=== PATIENT | female | born 1960 | race Caucasian/White ===

== ENCOUNTER 2019-04-23 09:56 | Inpatient (IN) ==
[2019-04-23] MEDS ORDERED: Sucralfate 1 GM TABLET PO PRN (12:00)
[2019-04-23] MEDS ORDERED: Magic Mouthwash 10 ML UD Cup PO PRN (12:00)
[2019-04-23] MEDS ORDERED: Nitroglycerin 0.4 MG TAB.SUBL SL PRN (12:00)
[2019-04-23] MEDS: *HR* HYDROcodone/Acet 10/325 mg TABLET PO PRN (14:02)
[2019-04-23] MEDS: GuaiFENesin/Codeine Oral Soln 5 ML UDC PO PRN (14:03)
[2019-04-23] MEDS: Ondansetron ODT 4 MG TAB.RAPDIS SL PRN (14:04)
[2019-04-23] MEDS ORDERED: D5% in Water 1,000 ML IVC PRN (15:21)
[2019-04-23] MEDS ORDERED: *HR* Dextrose 50 % in Water (Syg) 50 ML SYRINGE IVP PRN (15:21)
[2019-04-23] MEDS ORDERED: Dextrose Gel 15 GM/37.5 ML TUBE PO PRN ×2 (15:21)
--- NOTE | 2019-04-23 15:56 | Internal Med History&Physical ---
Date of Encounter: 04/23/19 Time of Encounter: 15:15 Assessment and Plan (1) Weakness Current visit: No Status: Acute PT and OT evaluations will be done with ongoing intervention. (2) Hyperlipidemia Current visit: Yes Status: Acute Lipid profile done 04/12/2019 reviewed. Continue Zetia Qualifiers: Hyperlipidemia type: unspecified Qualified Code(s): E78.5 - Hyperlipidemia, unspecified (3) Low vitamin D level Current visit: Yes Status: Acute Vitamin D level was 17 on 04/12/2019. Supplemental vitamin D has been ordered. (4) Hypertension Current visit: Yes Status: Chronic Continue Lopressor and Aldactone. Qualifiers: Hypertension type: essential hypertension Qualified Code(s): I10 - Essential (primary) hypertension (5) Anxiety and depression Current visit: Yes Status: Chronic Continue Wellbutrin, Ativan, and Zoloft. (6) Diabetes Current visit: No Status: Chronic Continue Levemir and Accu-Cheks with SSI. Qualifiers: Diabetes mellitus type: type 2 Diabetes mellitus complication status: with other specified complication Qualified Code(s): E11.69 - Type 2 diabetes mellitus with other specified complication; Z79.4 - skilled nursing (current) use of insulin (7) Lung cancer Current visit: No Status: Acute As per oncologist. Qualifiers: Laterality: unspecified laterality Lung location: unspecified part of lung Qualified Code(s): C34.90 - Malignant neoplasm of unspecified part of unspecified bronchus or lung (8) Neuropathy Current visit: Yes Status: Chronic [place] secondary to diabetes. Continue Lyrica. (9) COPD (chronic obstructive pulmonary disease) Current visit: Yes Status: Chronic Continue Symbicort, DuoNeb, and prn albuterol. Qualifiers: COPD type: unspecified COPD Qualified Code(s): J44.9 - Chronic obstructive pulmonary disease, unspecified Internal Medicine - H&P: HPI Chief complaint: Weakness Admitted From: Hospital to Hospital Transfer Plans for Post Hospital Care: Home History of present illness: Ms. North is a 58 year old female who was transferred to [facility] swing bed following [facility] hospitalizations April 11 and April 17. The initial hospitalization was due to syncopal episode with fall and weakness. She declined ECF placement recommended at discharge. She had a fall at home from weakness leading to the second admission. Workup included brain MRIs and lumbar puncture. Definitive etiology was not found but hypoglycemia was suspected as etiology of the fall. It was felt she would benefit from rehabilitation therapy in swing bed prior to returning to independent living. Past Med Surg Social Fam HX - Past Medical History Medical history: arthritis, cancer, COPD, diabetes, fibromyalgia, hyperlipidemia, hypertension Additional medical history: lung cancer-last tx March 19 chemo and radiation Psychiatric history: anxiety, depression, panic disorder - Past Surgical History Surgical History: cholecystectomy, hysterectomy Additional surgical history: TONSILS,vocal polyps, - Social History Smoking Status: Current every day smoker Smokeless Tobacco Status: No Alcohol use: none Drug use: none - Family History Mother Living Status: Father Living Status: Internal Medicine - H&P: Meds Budesonide/Formoterol 160/4.5 [Symbicort 160/4.5] 2 puff IH BIDR 06/23/18 [History] Ezetimibe [Zetia] 10 mg PO DAILY 06/23/18 [History] Ipratropium/Albuterol Neb [Duoneb] 3 ml IH Q6HR 06/23/18 [History] LORazepam [Ativan] 1 mg PO TID PRN 06/23/18 [History] Nitroglycerin [Nitrostat] 0.4 mg SL AD PRN 06/23/18 [History] Roflumilast [Daliresp] 500 mcg PO DAILY 06/23/18 [History] Sertraline [Zoloft] 200 mg PO DAILY 09/23/18 [History] Magic Mouthwash [Magic Mouthwash BLM] 10 ml PO Q2H PRN #960 ml 10/13/18 [Rx] Albuterol Sulfate [Proair Hfa] 2 puff IH Q6H PRN 10/26/18 [History] Sucralfate [Carafate] 1 gm PO QIDAC PRN #120 tablet 11/11/18 [Rx] Metoclopramide [Reglan] 10 mg PO QIDAC 30 Days #1200 ml 11/23/18 [Rx] Loperamide [Imodium] 2 mg PO Q4HR PRN #30 capsule 12/21/18 [Rx] Ondansetron [Zofran ODT] 8 mg SL Q8H PRN #30 tab 02/04/19 [Rx] GuaiFENesin/Codeine [ROBITUSSIN w/CODEINE] 10 - 20 ml PO Q6HR PRN 8 Days #480 liquid 02/15/19 [Rx] Bupropion HCl [Wellbutrin Xl] 300 mg PO DAILY 04/12/19 [History] HYDROcodone/Acet 10/325 mg [[place] 10-325 mg] 1 - 2 tab PO Q8HR PRN 04/12/19 [History] Metoprolol [Lopressor] 25 mg PO BID 04/12/19 [History] Spironolactone [Aldactone] 25 mg PO DAILY 04/12/19 [History] Subcutaneous Insulin Pump [T:Slim] 1 each MC AD 04/12/19 [History] Cholecalciferol (D-3) [Vitamin D] 2,000 unit PO DAILY #30 tablet 04/13/19 [Rx] Vitamin B Complex/Vit C/Vit E [Stresstab] 1 each PO DAILY #30 tablet 04/13/19 [Rx] Nicotine Patch [Nicoderm] 21 mg TD DAILY patch.td24 04/23/19 [Rx] Pregabalin [Lyrica] 50 mg PO DAILY 5 Days #5 capsule 04/23/19 [Rx] Allergy/AdvReac Type Severity Reaction Status Date / Time eszopiclone [From Lunesta] Allergy Anxiety Verified 12/21/18 09:27 gabapentin [From Neurontin] Allergy Vomiting Verified 12/21/18 09:27 meperidine [From Demerol] Allergy Itching Verified 12/21/18 09:27 metformin Allergy Diarrhea Verified 12/21/18 09:27 All Systems PM: A 10-system review of systems was performed and is negative for pertinent findi ngs except as documented above in the HPI. Review of systems: Gen.: She states her weight has decreased approximately 60 pounds in the past 6 months, unintentionally Respiratory: She has history of hypertension but denies MS heart failure DVT or pulmonary embolus. Echocardiogram 04/13/2019 showed LVEF of 55%. No significant valvular dysfunction was seen. The interventricular septum and posterior wall thickness measurements were 0.72 and 0.94 cm respectively. E/A ratio was 0.9. Heart cath June 2018 showed 50% stenosis in the mid RCA, 25% stenosis in proximal RCA, 25% stenosis in proximal circumflex, 30% stenosis in mid LAD, 25% stenosis in proximal LAD, and LMCA angiographically free of disease. Respiratory: She has smoked since age 11 up to one pack per day. She reports PFTs done almost 40 years ago showed COPD. She does not use supplemental home oxygen. She has MEHDI and uses CPAP at bedtime GI: She has had cholecystectomy. She has been diagnosed with NAFLD. She denies disorders of her exocrine pancreas. : She has had multiple kidney stones with most recent stone approximately one month ago. She denies other kidney or bladder disorders. Neurologic: She has not had large distribution strokes or seizures. She had prophylactic whole brain radiation earlier this year for diagnosis of small cell lung cancer. Endocrine: She was diagnosed with DM 2 approximately 2005. Hemoglobin A1c was 9.8% on 04/12/2019. She has history of hyperlipidemia. She denies thyroid disease. Hematology/oncology: She was diagnosed with small cell lung cancer of the right lung September 2018. She had chemotherapy ending December 2018. She had XRT to brain and lung. There is no known distal metastasis. She denies other internal malignancies or blood disorders. Psychiatric: She has anxiety and depression. She denies other mental health diagnoses. [place] skeletal: She has DJD and fibromyalgia. She has not been diagnosed with gout or other bone joint or muscle disorders. - Constitutional Vitals: Temp Pulse Resp BP Pulse Ox 98.0 F 79 18 141/83 95 04/23/19 13:18 04/23/19 13:28 04/23/19 13:18 04/23/19 13:18 04/23/19 13:28 Exam: Gen.: She is a well-developed overweight female lying in bed who appears in no acute distress HEENT: Head is atraumatic and normocephalic. She has alopecia totalis. Eyes: EOMI. There is no scleral icterus. Mouth: Mucosa is moist. Neck: Supple and nontender. There is no thyromegaly or adenopathy noted. Heart: Regular without murmurs gallops or ectopics Lungs: No wheezes or crackles are heard. Abdomen: She has a large abdomen. There is mild tenderness to light palpation. No masses or guarding are noted. Extremities: There is no cyanosis edema or clubbing noted. Dorsalis pedis and posterior tibial pulses are trace to 1+ palpable bilaterally. Neurologic: Mental status: She is talkative and a good historian. Cranial nerv es: Smile is symmetric. Forehead wrinkles bilaterally. Tongue protrudes midline. EOMI. Motor: There is no pronator drift. Cerebellar: Finger to nose is intact bilaterally. Skin: Warm and dry
[2019-04-23] MEDS: Metoclopramide 10 MG/10 ML UD.LIQ PO SCH ×2 (17:07→21:33)
[2019-04-23] MEDS: Insulin LISPRO 300 UNITS/3 ML VIAL SQ SCH ×2 (17:08→21:35)
[2019-04-23] MEDS: Ipratropium/Albuterol Neb 3 ML IH SCH ×2 (18:20→23:16)
[2019-04-23] MEDS: Insulin DETEMIR 100 UNIT/ML X5UNITS SQ SCH (21:35)
[2019-04-23] MEDS: Budesonide/Formoterol 160/4.5 1 PUFF INH IH SCH (23:16)
[2019-04-24] MEDS: Ipratropium/Albuterol Neb 3 ML IH SCH ×4 (04:00→21:56)
[2019-04-24] MEDS: Nicotine 21 MG PATCH.TD24 TD SCH (08:05)
[2019-04-24] MEDS: Insulin DETEMIR 100 UNIT/ML X5UNITS SQ SCH ×2 (08:07→21:39)
[2019-04-24] MEDS: Insulin LISPRO 300 UNITS/3 ML VIAL SQ SCH ×4 (08:07→21:40)
[2019-04-24] MEDS: Metoclopramide 10 MG/10 ML UD.LIQ PO SCH ×4 (08:09→21:39)
[2019-04-24] MEDS: BuPROPion XL (24 HR) 150 MG TABLET PO SCH (08:10)
[2019-04-24] MEDS: Cholecalciferol (D-3) 1,000 UNIT (25MCG) TABLET PO SCH (08:11)
[2019-04-24] MEDS: Vitamin B Complex/Vit C/Vit E 1 EACH TABLET PO SCH (08:11)
[2019-04-24] MEDS: Spironolactone 25 MG TABLET PO SCH (08:11)
[2019-04-24] MEDS: Pregabalin 50 MG CAPSULE PO SCH (08:11)
[2019-04-24] MEDS: DALIRESP 500MCG PO SCH (08:11)
[2019-04-24] MEDS: *HR* HYDROcodone/Acet 10/325 mg TABLET PO PRN ×2 (08:11→17:53)
[2019-04-24] MEDS: EZETIMIBE 10MG PO SCH (08:12)
[2019-04-24] MEDS: Budesonide/Formoterol 160/4.5 1 PUFF INH IH SCH ×2 (09:17→21:57)
[2019-04-24] MEDS: Ondansetron ODT 4 MG TAB.RAPDIS SL PRN ×2 (11:44→17:53)
--- NOTE | 2019-04-24 17:51 | Internal Med Progress Note ---
Date of Encounter: 04/24/19 Time of Encounter: 17:40 - Assessment and plan (1) Weakness Current Visit: No Status: Acute Assessment and plan: April 24. Continue PT/OT intervention. (2) Hyperlipidemia Current Visit: Yes Status: Acute Assessment and plan: April 24. Continue Zetia Qualifiers: Hyperlipidemia type: unspecified Qualified Code(s): E78.5 - Hyperlipidemia, unspecified (3) Low vitamin D level Current Visit: Yes Status: Acute Assessment and plan: April 24. Continue vitamin D supplement (4) Hypertension Current Visit: Yes Status: Chronic Assessment and plan: April 24. Continue Lopressor and Aldactone. Qualifiers: Hypertension type: essential hypertension Qualified Code(s): I10 - Essential (primary) hypertension (5) Anxiety and depression Current Visit: Yes Status: Chronic Assessment and plan: April 24. Continue Wellbutrin, Ativan, and Zoloft (6) Diabetes Current Visit: No Status: Chronic Assessment and plan: April 24. 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 As per oncologist Qualifiers: Laterality: unspecified laterality Lung location: unspecified part of lung Qualified Code(s): C34.90 - Malignant neoplasm of unspecified part of unspecified bronchus or lung (8) Neuropathy Current Visit: Yes Status: Chronic Assessment and plan: April 24. Probable DPN. Continue Lyrica. (9) COPD (chronic obstructive pulmonary disease) Current Visit: Yes Status: Chronic Assessment and plan: April 24. Continue Symbicort, DuoNeb, and prn albuterol. Qualifiers: COPD type: unspecified COPD Qualified Code(s): J44.9 - Chronic obstructive pulmonary disease, unspecified - Subjective Interval history: April 24. She has no new complaints except she has a "slight ringing" in her head and feels "disconnected". - Constitutional Vitals: Temp Pulse Resp BP Pulse Ox 96.8 F L 67 16 110/78 93 04/24/19 07:02 04/24/19 07:02 04/24/19 09:18 04/24/19 07:02 04/24/19 09:18 Exam: She is resting comfortably in bed and appears in no acute distress. Her affect is overall cheerful. She is appropriate in conversation. I reviewed her medications and lab results. Consult Discharge Plan - Plan Referrals: Reuben Melara DO [Primary Care Provider] - 1 week
[2019-04-24] MEDS: *HR* LORazepam 1 MG TABLET PO PRN (17:53)
[2019-04-24] MEDS: GuaiFENesin/Codeine Oral Soln 5 ML UDC PO PRN (17:55)
[2019-04-25] MEDS: Ipratropium/Albuterol Neb 3 ML IH SCH ×4 (04:42→22:07)
[2019-04-25] MEDS: Insulin LISPRO 300 UNITS/3 ML VIAL SQ SCH ×4 (08:48→21:37)
[2019-04-25] MEDS: Insulin DETEMIR 100 UNIT/ML X5UNITS SQ SCH ×2 (08:48→21:37)
[2019-04-25] MEDS: Nicotine 21 MG PATCH.TD24 TD SCH (08:52)
[2019-04-25] MEDS: Metoclopramide 10 MG/10 ML UD.LIQ PO SCH ×4 (08:55→21:37)
[2019-04-25] MEDS: Vitamin B Complex/Vit C/Vit E 1 EACH TABLET PO SCH (08:55)
[2019-04-25] MEDS: BuPROPion XL (24 HR) 150 MG TABLET PO SCH (08:55)
[2019-04-25] MEDS: Ondansetron ODT 4 MG TAB.RAPDIS SL PRN (08:56)
[2019-04-25] MEDS: Cholecalciferol (D-3) 1,000 UNIT (25MCG) TABLET PO SCH (08:56)
[2019-04-25] MEDS: DALIRESP 500MCG PO SCH (08:56)
[2019-04-25] MEDS: Spironolactone 25 MG TABLET PO SCH (08:56)
[2019-04-25] MEDS: Pregabalin 50 MG CAPSULE PO SCH (08:56)
[2019-04-25] MEDS: *HR* HYDROcodone/Acet 10/325 mg TABLET PO PRN ×2 (08:57→21:36)
[2019-04-25] MEDS: EZETIMIBE 10MG PO SCH (08:57)
[2019-04-25] MEDS: Budesonide/Formoterol 160/4.5 1 PUFF INH IH SCH ×2 (10:12→22:07)
[2019-04-25] MEDS: *HR* LORazepam 1 MG TABLET PO PRN (21:35)
[2019-04-26] MEDS: Ipratropium/Albuterol Neb 3 ML IH SCH ×4 (04:17→20:55)
[2019-04-26] MEDS: Metoclopramide 10 MG/10 ML UD.LIQ PO SCH ×4 (08:56→20:43)
[2019-04-26] MEDS: Insulin DETEMIR 100 UNIT/ML X5UNITS SQ SCH ×2 (08:57→20:47)
[2019-04-26] MEDS: Insulin LISPRO 300 UNITS/3 ML VIAL SQ SCH ×4 (08:57→20:44)
[2019-04-26] MEDS: Nicotine 21 MG PATCH.TD24 TD SCH (08:59)
[2019-04-26] MEDS: Vitamin B Complex/Vit C/Vit E 1 EACH TABLET PO SCH (09:06)
[2019-04-26] MEDS: BuPROPion XL (24 HR) 150 MG TABLET PO SCH (09:06)
[2019-04-26] MEDS: Ondansetron ODT 4 MG TAB.RAPDIS SL PRN ×2 (09:06→21:00)
[2019-04-26] MEDS: Pregabalin 50 MG CAPSULE PO SCH (09:06)
[2019-04-26] MEDS: Spironolactone 25 MG TABLET PO SCH (09:06)
[2019-04-26] MEDS: Cholecalciferol (D-3) 1,000 UNIT (25MCG) TABLET PO SCH (09:07)
[2019-04-26] MEDS: *HR* LORazepam 1 MG TABLET PO PRN ×2 (09:09→16:46)
[2019-04-26] MEDS: *HR* HYDROcodone/Acet 10/325 mg TABLET PO PRN (09:09)
[2019-04-26] MEDS: EZETIMIBE 10MG PO SCH (09:16)
[2019-04-26] MEDS: DALIRESP 500MCG PO SCH (09:16)
[2019-04-26] MEDS: Budesonide/Formoterol 160/4.5 1 PUFF INH IH SCH ×2 (10:12→20:55)
[2019-04-26] MEDS ORDERED: Insulin LISPRO 300 UNITS/3 ML VIAL SQ ONE (13:19)
--- NOTE | 2019-04-26 15:16 | Internal Med Progress Note ---
Date of Encounter: 04/26/19 Time of Encounter: 15:08 - Assessment and plan (1) Weakness Current Visit: No Status: Acute Assessment and plan: April 24. Continue PT/OT intervention. (2) Hyperlipidemia Current Visit: Yes Status: Acute Assessment and plan: April 24. Continue Zetia Qualifiers: Hyperlipidemia type: unspecified Qualified Code(s): E78.5 - Hyperlipidemia, unspecified (3) Low vitamin D level Current Visit: Yes Status: Acute Assessment and plan: April 24. Vitamin D level was 17 on 04/12/2019. Continue vitamin D supplement (4) Hypertension Current Visit: Yes Status: Chronic Assessment and plan: April 24. Continue Lopressor and Aldactone. Qualifiers: Hypertension type: essential hypertension Qualified Code(s): I10 - Essential (primary) hypertension (5) Anxiety and depression Current Visit: Yes Status: Chronic Assessment and plan: April 24. Continue Wellbutrin, Ativan, and Zoloft (6) Diabetes Current Visit: No Status: Chronic Assessment and plan: April 24. Continue Levemir and Accu-Cheks with SSI April 26. Blood sugars are above desirable level. Increase Levemir to 20 units twice a day. Continue Accu-Cheks with SSI. 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 As per oncologist Qualifiers: Laterality: unspecified laterality Lung location: unspecified part of lung Qualified Code(s): C34.90 - Malignant neoplasm of unspecified part of unspecified bronchus or lung (8) Neuropathy Current Visit: Yes Status: Chronic Assessment and plan: April 24. Probable DPN. Continue Lyrica. (9) COPD (chronic obstructive pulmonary disease) Current Visit: Yes Status: Chronic Assessment and plan: April 24. Continue Symbicort, DuoNeb, and prn albuterol. Qualifiers: COPD type: unspecified COPD Qualified Code(s): J44.9 - Chronic obstructive pulmonary disease, unspecified - Subjective Interval history: April 24. She has no new complaints except she has a "slight ringing" in her head and feels "disconnected". April 26. She has no new complaints. - Constitutional Vitals: Temp Pulse Resp BP Pulse Ox 98.1 F 72 14 149/81 93 04/26/19 06:48 04/26/19 06:48 04/26/19 10:12 04/26/19 06:48 04/26/19 10:12 Exam: She is resting comfortably in bed. She is wearing BiPAP at present. Heart is regular without murmurs gallops or ectopics. Lungs are clear anteriorly. Extremities show no pitting edema. I reviewed her medications and lab results. Consult Discharge Plan - Plan Referrals: Reuben Melara DO [Primary Care Provider] - 1 week
[2019-04-26] MEDS: GuaiFENesin/Codeine Oral Soln 5 ML UDC PO PRN (18:45)
[2019-04-27] MEDS: Ipratropium/Albuterol Neb 3 ML IH SCH ×4 (05:14→21:42)
[2019-04-27] MEDS: Cholecalciferol (D-3) 1,000 UNIT (25MCG) TABLET PO SCH (08:40)
[2019-04-27] MEDS: Metoclopramide 10 MG/10 ML UD.LIQ PO SCH ×4 (08:40→20:14)
[2019-04-27] MEDS: Spironolactone 25 MG TABLET PO SCH (08:40)
[2019-04-27] MEDS: Pregabalin 50 MG CAPSULE PO SCH (08:40)
[2019-04-27] MEDS: Vitamin B Complex/Vit C/Vit E 1 EACH TABLET PO SCH (08:40)
[2019-04-27] MEDS: BuPROPion XL (24 HR) 150 MG TABLET PO SCH (08:41)
[2019-04-27] MEDS: Insulin LISPRO 300 UNITS/3 ML VIAL SQ SCH ×4 (08:42→20:15)
[2019-04-27] MEDS: Insulin DETEMIR 100 UNIT/ML X5UNITS SQ SCH ×2 (08:42→20:14)
[2019-04-27] MEDS: Nicotine 21 MG PATCH.TD24 TD SCH (09:06)
[2019-04-27] MEDS: Ondansetron ODT 4 MG TAB.RAPDIS SL PRN ×3 (09:06→20:14)
[2019-04-27] MEDS: *HR* LORazepam 1 MG TABLET PO PRN ×2 (09:06→17:12)
[2019-04-27] MEDS: EZETIMIBE 10MG PO SCH (09:13)
[2019-04-27] MEDS: DALIRESP 500MCG PO SCH (09:13)
[2019-04-27] MEDS: Budesonide/Formoterol 160/4.5 1 PUFF INH IH SCH ×2 (11:06→21:42)
[2019-04-27] MEDS ORDERED: Insulin LISPRO 300 UNITS/3 ML VIAL SQ ONE (11:37)
[2019-04-27] MEDS: GuaiFENesin/Codeine Oral Soln 5 ML UDC PO PRN (17:11)
[2019-04-28] MEDS: Ipratropium/Albuterol Neb 3 ML IH SCH ×4 (03:19→21:45)
[2019-04-28] MEDS: Vitamin B Complex/Vit C/Vit E 1 EACH TABLET PO SCH (08:23)
[2019-04-28] MEDS: Metoclopramide 10 MG/10 ML UD.LIQ PO SCH ×4 (08:23→22:14)
[2019-04-28] MEDS: BuPROPion XL (24 HR) 150 MG TABLET PO SCH (08:23)
[2019-04-28] MEDS: Cholecalciferol (D-3) 1,000 UNIT (25MCG) TABLET PO SCH (08:24)
[2019-04-28] MEDS: Pregabalin 50 MG CAPSULE PO SCH (08:24)
[2019-04-28] MEDS: Spironolactone 25 MG TABLET PO SCH (08:24)
[2019-04-28] MEDS: EZETIMIBE 10MG PO SCH (08:25)
[2019-04-28] MEDS: DALIRESP 500MCG PO SCH (08:25)
[2019-04-28] MEDS: *HR* LORazepam 1 MG TABLET PO PRN ×3 (08:35→22:14)
[2019-04-28] MEDS: Nicotine 21 MG PATCH.TD24 TD SCH (08:35)
[2019-04-28] MEDS: Insulin LISPRO 300 UNITS/3 ML VIAL SQ SCH ×4 (08:36→22:14)
[2019-04-28] MEDS: Insulin DETEMIR 100 UNIT/ML X5UNITS SQ SCH ×2 (08:36→22:14)
[2019-04-28] MEDS: *HR* HYDROcodone/Acet 10/325 mg TABLET PO PRN ×2 (08:42→22:13)
[2019-04-28] MEDS: Budesonide/Formoterol 160/4.5 1 PUFF INH IH SCH ×2 (10:07→22:35)
[2019-04-28] MEDS: GuaiFENesin/Codeine Oral Soln 5 ML UDC PO PRN (22:26)
[2019-04-29] MEDS: Ipratropium/Albuterol Neb 3 ML IH SCH ×4 (04:52→21:58)
[2019-04-29] MEDS: EZETIMIBE 10MG PO SCH (08:25)
[2019-04-29] MEDS: DALIRESP 500MCG PO SCH (08:25)
[2019-04-29] MEDS: Vitamin B Complex/Vit C/Vit E 1 EACH TABLET PO SCH (08:46)
[2019-04-29] MEDS: Metoclopramide 10 MG/10 ML UD.LIQ PO SCH ×4 (08:46→21:08)
[2019-04-29] MEDS: BuPROPion XL (24 HR) 150 MG TABLET PO SCH (08:46)
[2019-04-29] MEDS: Pregabalin 50 MG CAPSULE PO SCH (08:47)
[2019-04-29] MEDS: Spironolactone 25 MG TABLET PO SCH (08:47)
[2019-04-29] MEDS: Insulin DETEMIR 100 UNIT/ML X5UNITS SQ SCH ×2 (08:47→20:57)
[2019-04-29] MEDS: Nicotine 21 MG PATCH.TD24 TD SCH (08:47)
[2019-04-29] MEDS: Cholecalciferol (D-3) 1,000 UNIT (25MCG) TABLET PO SCH (08:47)
[2019-04-29] MEDS: *HR* LORazepam 1 MG TABLET PO PRN ×3 (08:47→20:57)
[2019-04-29] MEDS: Insulin LISPRO 300 UNITS/3 ML VIAL SQ SCH ×4 (08:48→20:59)
[2019-04-29] MEDS: GuaiFENesin/Codeine Oral Soln 5 ML UDC PO PRN ×2 (08:50→20:58)
[2019-04-29] MEDS: Budesonide/Formoterol 160/4.5 1 PUFF INH IH SCH ×2 (09:08→21:59)
[2019-04-29] MEDS: *HR* HYDROcodone/Acet 10/325 mg TABLET PO PRN ×2 (09:23→17:40)
[2019-04-29] MEDS ORDERED: Insulin LISPRO 300 UNITS/3 ML VIAL SQ ONE ×2 (11:56→17:17)
--- NOTE | 2019-04-29 14:50 | Internal Med Progress Note ---
Date of Encounter: 04/29/19 Time of Encounter: 14:42 - Assessment and plan (1) Weakness Current Visit: No Status: Acute Assessment and plan: April 24. Continue PT/OT intervention. (2) Hyperlipidemia Current Visit: Yes Status: Acute Assessment and plan: April 24. Continue Zetia Qualifiers: Hyperlipidemia type: unspecified Qualified Code(s): E78.5 - Hyperlipidemia, unspecified (3) Low vitamin D level Current Visit: Yes Status: Acute Assessment and plan: April 24. Vitamin D level was 17 on 04/12/2019. Continue vitamin D supplement (4) Hypertension Current Visit: Yes Status: Chronic Assessment and plan: April 24. Continue Lopressor and Aldactone. Qualifiers: Hypertension type: essential hypertension Qualified Code(s): I10 - Essential (primary) hypertension (5) Anxiety and depression Current Visit: Yes Status: Chronic Assessment and plan: April 24. Continue Wellbutrin, Ativan, and Zoloft (6) Diabetes Current Visit: No Status: Chronic Assessment and plan: April 24. Continue Levemir and Accu-Cheks with SSI April 26. Blood sugars are above desirable level. Increase Levemir to 20 units twice a day. Continue Accu-Cheks with SSI. April 29. Blood sugars have remained elevated. Levemir dose is now 70 units twice daily. Continue Accu-Cheks with SSI. 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 As per oncologist Qualifiers: Laterality: unspecified laterality Lung location: unspecified part of lung Qualified Code(s): C34.90 - Malignant neoplasm of unspecified part of unspecified bronchus or lung (8) Neuropathy Current Visit: Yes Status: Chronic Assessment and plan: April 24. Probable DPN. Continue Lyrica. (9) COPD (chronic obstructive pulmonary disease) Current Visit: Yes Status: Chronic Assessment and plan: April 24. Continue Symbicort, DuoNeb, and prn albuterol. Qualifiers: COPD type: unspecified COPD Qualified Code(s): J44.9 - Chronic obstructive pulmonary disease, unspecified - Subjective Interval history: April 24. She has no new complaints except she has a "slight ringing" in her head and feels "disconnected". April 26. She has no new complaints. April 29. She has no new complaints except mild discomfort in her legs and lower back. - Constitutional Vitals: Temp Pulse Resp BP Pulse Ox 97.4 F L 61 18 134/62 92 04/29/19 07:04/29/19 07:04/29/19 09:09 04/29/19 07:04/29/19 09:09 Exam: She is resting comfortably in bed wearing nasal BiPAP. Her affect is bright and cheerful. Extremities show no pitting edema. I reviewed her medications and lab results. Consult Discharge Plan - Plan Referrals: Reuben Melara DO [Primary Care Provider] - 1 week
[2019-04-30] MEDS: Ipratropium/Albuterol Neb 3 ML IH SCH ×4 (04:41→22:28)
[2019-04-30] MEDS: Budesonide/Formoterol 160/4.5 1 PUFF INH IH SCH ×2 (09:07→22:28)
[2019-04-30] MEDS: *HR* LORazepam 1 MG TABLET PO PRN ×2 (09:19→21:43)
[2019-04-30] MEDS: Insulin DETEMIR 100 UNIT/ML X5UNITS SQ SCH (09:19)
[2019-04-30] MEDS: BuPROPion XL (24 HR) 150 MG TABLET PO SCH (09:19)
[2019-04-30] MEDS: Insulin LISPRO 300 UNITS/3 ML VIAL SQ SCH ×4 (09:19→21:44)
[2019-04-30] MEDS: Metoclopramide 10 MG/10 ML UD.LIQ PO SCH ×4 (09:19→21:43)
[2019-04-30] MEDS: Nicotine 21 MG PATCH.TD24 TD SCH (09:20)
[2019-04-30] MEDS: Vitamin B Complex/Vit C/Vit E 1 EACH TABLET PO SCH (09:20)
[2019-04-30] MEDS: Pregabalin 50 MG CAPSULE PO SCH (09:20)
[2019-04-30] MEDS: Cholecalciferol (D-3) 1,000 UNIT (25MCG) TABLET PO SCH (09:20)
[2019-04-30] MEDS: DALIRESP 500MCG PO SCH (09:20)
[2019-04-30] MEDS: Spironolactone 25 MG TABLET PO SCH (09:20)
[2019-04-30] MEDS: EZETIMIBE 10MG PO SCH (09:20)
[2019-04-30] MEDS: *HR* HYDROcodone/Acet 10/325 mg TABLET PO PRN (09:25)
[2019-04-30] MEDS ORDERED: Insulin LISPRO 300 UNITS/3 ML VIAL SQ ONE (12:56)
[2019-04-30] MEDS ORDERED: Insulin DETEMIR 100 UNIT/ML per UNIT SQ ONE (21:00)
[2019-05-01] MEDS: Ipratropium/Albuterol Neb 3 ML IH SCH ×4 (04:32→23:13)
[2019-05-01] MEDS: Nicotine 21 MG PATCH.TD24 TD SCH (07:47)
[2019-05-01] MEDS: Insulin DETEMIR 100 UNIT/ML X5UNITS SQ SCH ×2 (07:48→21:43)
[2019-05-01] MEDS: Insulin LISPRO 300 UNITS/3 ML VIAL SQ SCH ×4 (07:49→21:43)
[2019-05-01] MEDS: Metoclopramide 10 MG/10 ML UD.LIQ PO SCH ×4 (07:49→21:36)
[2019-05-01] MEDS: EZETIMIBE 10MG PO SCH (07:50)
[2019-05-01] MEDS: *HR* LORazepam 1 MG TABLET PO PRN ×2 (07:50→21:36)
[2019-05-01] MEDS: BuPROPion XL (24 HR) 150 MG TABLET PO SCH (07:50)
[2019-05-01] MEDS: *HR* HYDROcodone/Acet 10/325 mg TABLET PO PRN ×2 (07:50→21:36)
[2019-05-01] MEDS: Spironolactone 25 MG TABLET PO SCH (07:50)
[2019-05-01] MEDS: Vitamin B Complex/Vit C/Vit E 1 EACH TABLET PO SCH (07:50)
[2019-05-01] MEDS: Cholecalciferol (D-3) 1,000 UNIT (25MCG) TABLET PO SCH (07:50)
[2019-05-01] MEDS: Pregabalin 50 MG CAPSULE PO SCH (07:50)
[2019-05-01] MEDS: DALIRESP 500MCG PO SCH (07:50)
[2019-05-01] MEDS: Budesonide/Formoterol 160/4.5 1 PUFF INH IH SCH ×2 (09:27→23:13)
[2019-05-02] MEDS: Ipratropium/Albuterol Neb 3 ML IH SCH ×4 (04:31→22:37)
[2019-05-02] MEDS: BuPROPion XL (24 HR) 150 MG TABLET PO SCH (09:00)
[2019-05-02] MEDS: Pregabalin 50 MG CAPSULE PO SCH (09:00)
[2019-05-02] MEDS: Insulin DETEMIR 100 UNIT/ML X5UNITS SQ SCH ×2 (09:00→20:54)
[2019-05-02] MEDS: *HR* LORazepam 1 MG TABLET PO PRN ×2 (09:00→20:53)
[2019-05-02] MEDS: Cholecalciferol (D-3) 1,000 UNIT (25MCG) TABLET PO SCH (09:00)
[2019-05-02] MEDS: Vitamin B Complex/Vit C/Vit E 1 EACH TABLET PO SCH (09:00)
[2019-05-02] MEDS: Spironolactone 25 MG TABLET PO SCH (09:00)
[2019-05-02] MEDS: Metoclopramide 10 MG/10 ML UD.LIQ PO SCH ×4 (09:00→20:53)
[2019-05-02] MEDS: Nicotine 21 MG PATCH.TD24 TD SCH (09:07)
[2019-05-02] MEDS: Insulin LISPRO 300 UNITS/3 ML VIAL SQ SCH ×4 (09:07→20:54)
[2019-05-02] MEDS: Budesonide/Formoterol 160/4.5 1 PUFF INH IH SCH ×2 (09:14→22:38)
[2019-05-02] MEDS: EZETIMIBE 10MG PO SCH (09:50)
[2019-05-02] MEDS: DALIRESP 500MCG PO SCH (09:50)
--- NOTE | 2019-05-02 12:18 | Internal Med Progress Note ---
Date of Encounter: 05/02/19 Time of Encounter: 12:10 - Assessment and plan (1) Weakness Current Visit: No Status: Acute Assessment and plan: April 24. Continue PT/OT intervention. (2) Hyperlipidemia Current Visit: Yes Status: Acute Assessment and plan: April 24. Continue Zetia Qualifiers: Hyperlipidemia type: unspecified Qualified Code(s): E78.5 - Hyperlipidemia, unspecified (3) Low vitamin D level Current Visit: Yes Status: Acute Assessment and plan: April 24. Vitamin D level was 17 on 04/12/2019. Continue vitamin D supplement (4) Hypertension Current Visit: Yes Status: Chronic Assessment and plan: April 24. Continue Lopressor and Aldactone. Qualifiers: Hypertension type: essential hypertension Qualified Code(s): I10 - Essential (primary) hypertension (5) Anxiety and depression Current Visit: Yes Status: Chronic Assessment and plan: April 24. Continue Wellbutrin, Ativan, and Zoloft (6) Diabetes Current Visit: No Status: Chronic Assessment and plan: April 24. Continue Levemir and Accu-Cheks with SSI April 26. Blood sugars are above desirable level. Increase Levemir to 20 units twice a day. Continue Accu-Cheks with SSI. April 29. Blood sugars have remained elevated. Levemir dose is now 70 units twice daily. Continue Accu-Cheks with SSI. May 02. Blood sugars improved but still above desirable range. Increase Levemir from 100 units bid to 120 units bid. 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 As per oncologist Qualifiers: Laterality: unspecified laterality Lung location: unspecified part of lung Qualified Code(s): C34.90 - Malignant neoplasm of unspecified part of unspecified bronchus or lung (8) Neuropathy Current Visit: Yes Status: Chronic Assessment and plan: April 24. Probable DPN. Continue Lyrica. (9) COPD (chronic obstructive pulmonary disease) Current Visit: Yes Status: Chronic Assessment and plan: April 24. Continue Symbicort, DuoNeb, and prn albuterol. Qualifiers: COPD type: unspecified COPD Qualified Code(s): J44.9 - Chronic obstructive pulmonary disease, unspecified - Subjective Interval history: April 24. She has no new complaints except she has a "slight ringing" in her head and feels "disconnected". April 26. She has no new complaints. April 29. She has no new complaints except mild discomfort in her legs and lower back. May 02. She has no new complaints. - Constitutional Vitals: Temp Pulse Resp BP Pulse Ox 97.3 F L 60 12 132/65 97 05/02/19 10:46 05/02/19 10:46 05/02/19 10:46 05/02/19 10:46 05/02/19 10:46 Exam: She is resting comfortably in bed and appears in no acute distress. Her affect is overall cheerful. Extremities show no edema. Heart is regular without murmurs gallops or ectopics. Lungs are clear anteriorly. I reviewed her medications and lab results. Consult Discharge Plan - Plan Referrals: Reuben Melara DO [Primary Care Provider] - 1 week
[2019-05-02] MEDS: GuaiFENesin/Codeine Oral Soln 5 ML UDC PO PRN ×2 (14:51→20:53)
[2019-05-02] MEDS: *HR* HYDROcodone/Acet 10/325 mg TABLET PO PRN (20:53)
[2019-05-03] MEDS: Ipratropium/Albuterol Neb 3 ML IH SCH ×2 (04:00→09:53)
[2019-05-03] MEDS: Insulin LISPRO 300 UNITS/3 ML VIAL SQ SCH ×4 (07:17→20:58)
[2019-05-03] MEDS: Metoclopramide 10 MG/10 ML UD.LIQ PO SCH ×4 (07:18→20:56)
[2019-05-03] MEDS: *HR* LORazepam 1 MG TABLET PO PRN ×2 (07:22→20:57)
[2019-05-03] MEDS: *HR* HYDROcodone/Acet 10/325 mg TABLET PO PRN ×2 (07:22→20:56)
[2019-05-03] MEDS: Insulin DETEMIR 100 UNIT/ML X5UNITS SQ SCH ×2 (09:05→20:58)
[2019-05-03] MEDS: BuPROPion XL (24 HR) 150 MG TABLET PO SCH (09:07)
[2019-05-03] MEDS: Spironolactone 25 MG TABLET PO SCH (09:08)
[2019-05-03] MEDS: Pregabalin 50 MG CAPSULE PO SCH (09:08)
[2019-05-03] MEDS: Cholecalciferol (D-3) 1,000 UNIT (25MCG) TABLET PO SCH (09:08)
[2019-05-03] MEDS: Vitamin B Complex/Vit C/Vit E 1 EACH TABLET PO SCH (09:08)
[2019-05-03] MEDS: DALIRESP 500MCG PO SCH (09:09)
[2019-05-03] MEDS: EZETIMIBE 10MG PO SCH (09:09)
[2019-05-03] MEDS: Nicotine 21 MG PATCH.TD24 TD SCH (09:23)
[2019-05-03] MEDS: Budesonide/Formoterol 160/4.5 1 PUFF INH IH SCH ×2 (09:53→22:15)
[2019-05-03] MEDS: Ondansetron ODT 4 MG TAB.RAPDIS SL PRN (19:00)
[2019-05-03] MEDS: GuaiFENesin/Codeine Oral Soln 5 ML UDC PO PRN (19:03)
[2019-05-04] MEDS: DALIRESP 500MCG PO SCH (07:54)
[2019-05-04] MEDS: Pregabalin 50 MG CAPSULE PO SCH (08:08)
[2019-05-04] MEDS: BuPROPion XL (24 HR) 150 MG TABLET PO SCH (08:08)
[2019-05-04] MEDS: *HR* LORazepam 1 MG TABLET PO PRN ×2 (08:08→16:55)
[2019-05-04] MEDS: Vitamin B Complex/Vit C/Vit E 1 EACH TABLET PO SCH (08:08)
[2019-05-04] MEDS: Cholecalciferol (D-3) 1,000 UNIT (25MCG) TABLET PO SCH (08:08)
[2019-05-04] MEDS: Spironolactone 25 MG TABLET PO SCH (08:09)
[2019-05-04] MEDS: *HR* HYDROcodone/Acet 10/325 mg TABLET PO PRN ×2 (08:09→22:06)
[2019-05-04] MEDS: GuaiFENesin/Codeine Oral Soln 5 ML UDC PO PRN (08:10)
[2019-05-04] MEDS: Insulin LISPRO 300 UNITS/3 ML VIAL SQ SCH ×4 (08:12→22:07)
[2019-05-04] MEDS: Insulin DETEMIR 100 UNIT/ML X5UNITS SQ SCH ×2 (08:12→22:06)
[2019-05-04] MEDS: Nicotine 21 MG PATCH.TD24 TD SCH (08:12)
[2019-05-04] MEDS: Metoclopramide 10 MG/10 ML UD.LIQ PO SCH ×4 (08:12→22:06)
[2019-05-04] MEDS: EZETIMIBE 10MG PO SCH (08:13)
[2019-05-04] MEDS: Budesonide/Formoterol 160/4.5 1 PUFF INH IH SCH ×2 (09:47→21:56)
[2019-05-04] MEDS: Ondansetron ODT 4 MG TAB.RAPDIS SL PRN (14:08)
[2019-05-04] MEDS ORDERED: *HR* Dextrose 50 % in Water (Vial) 50 ML VIAL IVP PRN (16:26)
[2019-05-05] MEDS: BuPROPion XL (24 HR) 150 MG TABLET PO SCH (08:21)
[2019-05-05] MEDS: Pregabalin 50 MG CAPSULE PO SCH (08:21)
[2019-05-05] MEDS: Vitamin B Complex/Vit C/Vit E 1 EACH TABLET PO SCH (08:21)
[2019-05-05] MEDS: Metoclopramide 10 MG/10 ML UD.LIQ PO SCH ×4 (08:21→21:30)
[2019-05-05] MEDS: Cholecalciferol (D-3) 1,000 UNIT (25MCG) TABLET PO SCH (08:21)
[2019-05-05] MEDS: Nicotine 21 MG PATCH.TD24 TD SCH (08:21)
[2019-05-05] MEDS: Spironolactone 25 MG TABLET PO SCH (08:21)
[2019-05-05] MEDS: Insulin DETEMIR 100 UNIT/ML X5UNITS SQ SCH ×2 (08:22→21:30)
[2019-05-05] MEDS: EZETIMIBE 10MG PO SCH (08:22)
[2019-05-05] MEDS: DALIRESP 500MCG PO SCH (08:22)
[2019-05-05] MEDS: Insulin LISPRO 300 UNITS/3 ML VIAL SQ SCH ×4 (08:23→21:30)
[2019-05-05] MEDS: *HR* LORazepam 1 MG TABLET PO PRN ×3 (08:23→21:30)
[2019-05-05] MEDS: *HR* HYDROcodone/Acet 10/325 mg TABLET PO PRN ×2 (08:23→21:30)
[2019-05-05] MEDS: GuaiFENesin/Codeine Oral Soln 5 ML UDC PO PRN ×2 (08:24→14:30)
[2019-05-05] MEDS: Budesonide/Formoterol 160/4.5 1 PUFF INH IH SCH ×2 (10:15→21:13)
--- NOTE | 2019-05-05 12:28 | Internal Med Progress Note ---
Date of Encounter: 05/05/19 Time of Encounter: 12:20 - Assessment and plan (1) Weakness Current Visit: No Status: Acute Assessment and plan: April 24. Continue PT/OT intervention. (2) Hyperlipidemia Current Visit: Yes Status: Acute Assessment and plan: April 24. Continue Zetia Qualifiers: Hyperlipidemia type: unspecified Qualified Code(s): E78.5 - Hyperlipidemia, unspecified (3) Low vitamin D level Current Visit: Yes Status: Acute Assessment and plan: April 24. Vitamin D level was 17 on 04/12/2019. Continue vitamin D supplement (4) Hypertension Current Visit: Yes Status: Chronic Assessment and plan: April 24. Continue Lopressor and Aldactone. Qualifiers: Hypertension type: essential hypertension Qualified Code(s): I10 - Essential (primary) hypertension (5) Anxiety and depression Current Visit: Yes Status: Chronic Assessment and plan: April 24. Continue Wellbutrin, Ativan, and Zoloft (6) Diabetes Current Visit: No Status: Chronic Assessment and plan: April 24. Continue Levemir and Accu-Cheks with SSI April 26. Blood sugars are above desirable level. Increase Levemir to 20 units twice a day. Continue Accu-Cheks with SSI. April 29. Blood sugars have remained elevated. Levemir dose is now 70 units twice daily. Continue Accu-Cheks with SSI. May 02. Blood sugars improved but still above desirable range. Increase Levemir from 100 units bid to 120 units bid. May 05. She states she follows routinely with an event staff member. She has been on multiple oral medications in the past but states "they did not work". She reports GI upset using metformin. Blood sugars are still above desirable level. Increase Levemir to 140 units twice daily. 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 As per oncologist Qualifiers: Laterality: unspecified laterality Lung location: unspecified part of lung Qualified Code(s): C34.90 - Malignant neoplasm of unspecified part of unspecified bronchus or lung (8) Neuropathy Current Visit: Yes Status: Chronic Assessment and plan: April 24. Probable DPN. Continue Lyrica. (9) COPD (chronic obstructive pulmonary disease) Current Visit: Yes Status: Chronic Assessment and plan: April 24. Continue Symbicort, DuoNeb, and prn albuterol. Qualifiers: COPD type: unspecified COPD Qualified Code(s): J44.9 - Chronic obstructive pulmonary disease, unspecified - Subjective Interval history: April 24. She has no new complaints except she has a "slight ringing" in her head and feels "disconnected". April 26. She has no new complaints. April 29. She has no new complaints except mild discomfort in her legs and lower back. May 02. She has no new complaints. May 05. She has no new complaints and feels well. - Constitutional Vitals: Temp Pulse Resp BP Pulse Ox 96.6 F L 96 14 142/84 95 05/05/19 06:36 05/05/19 06:36 05/05/19 10:15 05/05/19 06:36 05/05/19 10:15 Exam: She is resting comfortably in bed and appears in no acute distress. Her affect is bright and cheerful. Extremities show no pitting edema. I reviewed her medications, Accu-Cheks, and lab results. Consult Discharge Plan - Plan Referrals: Reuben Melara DO [Primary Care Provider] - 1 week
[2019-05-05] MEDS: Ondansetron ODT 4 MG TAB.RAPDIS SL PRN (14:29)
[2019-05-06] MEDS: Spironolactone 25 MG TABLET PO SCH (08:17)
[2019-05-06] MEDS: Nicotine 21 MG PATCH.TD24 TD SCH (08:17)
[2019-05-06] MEDS: Ondansetron ODT 4 MG TAB.RAPDIS SL PRN ×3 (08:17→21:19)
[2019-05-06] MEDS: Vitamin B Complex/Vit C/Vit E 1 EACH TABLET PO SCH (08:17)
[2019-05-06] MEDS: Metoclopramide 10 MG/10 ML UD.LIQ PO SCH ×4 (08:17→20:41)
[2019-05-06] MEDS: Pregabalin 50 MG CAPSULE PO SCH (08:18)
[2019-05-06] MEDS: *HR* HYDROcodone/Acet 10/325 mg TABLET PO PRN ×2 (08:18→20:47)
[2019-05-06] MEDS: BuPROPion XL (24 HR) 150 MG TABLET PO SCH (08:18)
[2019-05-06] MEDS: Cholecalciferol (D-3) 1,000 UNIT (25MCG) TABLET PO SCH (08:18)
[2019-05-06] MEDS: Insulin DETEMIR 100 UNIT/ML X5UNITS SQ SCH ×2 (08:19→20:41)
[2019-05-06] MEDS: Insulin LISPRO 300 UNITS/3 ML VIAL SQ SCH ×4 (08:19→20:41)
[2019-05-06] MEDS: Budesonide/Formoterol 160/4.5 1 PUFF INH IH SCH ×2 (08:23→21:34)
[2019-05-06] MEDS: DALIRESP 500MCG PO SCH (10:56)
[2019-05-06] MEDS: EZETIMIBE 10MG PO SCH (10:56)
[2019-05-06] MEDS: *HR* LORazepam 1 MG TABLET PO PRN (20:47)
[2019-05-06] MEDS: GuaiFENesin/Codeine Oral Soln 5 ML UDC PO PRN (20:48)
[2019-05-06] MEDS ORDERED: *HR* Promethazine 25 MG/ML VIAL IM ONE (22:03)
[2019-05-06 22:27] LABS: Basophils % 0.3 %; Eosinophils # 0.1 K/mcL (0.0-0.6); Eosinophils % 0.9 %; Hematocrit 42.9 % (35.3-44.9); Hemoglobin 14.1 g/dL (11.5-15.4); Immature Granulocytes % 0.4 % (0-4); Lymphocytes # 1.2 K/mcL (0.6-4.6); Lymphocytes % 15.6 %; Mean Corpuscular HGB Conc 32.9 g/dL (31.6-35.5); Mean Corpuscular Hemoglobin 28.6 pg (28.0-33.3); Mean Platelet Volume 8.7 fL (9.4-12.4); Monocytes # 0.4 K/mcL (0.0-1.3); Monocytes % 5.2 %; Neutrophils # 5.9 K/mcL (1.6-8.9); Platelet Count 159 K/mcL (140-400); Red Blood Count 4.93 M/mcL (3.82-4.97); Red Cell Distribution Width 13.9 % (11.5-14.5); Segmented Neutrophils % 77.6 %; White Blood Count 7.6 K/mcL (4.3-11.1)
[2019-05-06 23:10] LABS: BUN/Creatinine Ratio 14 (6-26); Blood Urea Nitrogen 14 mg/dL (8-23); Calcium 9.4 mg/dL (8.6-10.3); Carbon Dioxide 31 mEq/L (23-29); Chloride 97 mEq/L (98-107); Glucose 230 mg/dL (70-105); Lipase 6 Units/L (11-82); Osmolality,Calculated 290 (280-300); Sodium 136 mEq/L (136-145); eGFR For African Americans > 60 (> 60); eGFR For Non-African Americans 57 (> 60)
[2019-05-07] MEDS: Cholecalciferol (D-3) 1,000 UNIT (25MCG) TABLET PO SCH (08:59)
[2019-05-07] MEDS: Pregabalin 50 MG CAPSULE PO SCH (08:59)
[2019-05-07] MEDS: Spironolactone 25 MG TABLET PO SCH (08:59)
[2019-05-07] MEDS: Metoclopramide 10 MG/10 ML UD.LIQ PO SCH ×4 (08:59→21:12)
[2019-05-07] MEDS: BuPROPion XL (24 HR) 150 MG TABLET PO SCH (08:59)
[2019-05-07] MEDS: Vitamin B Complex/Vit C/Vit E 1 EACH TABLET PO SCH (08:59)
[2019-05-07] MEDS: Nicotine 21 MG PATCH.TD24 TD SCH (08:59)
[2019-05-07] MEDS: DALIRESP 500MCG PO SCH (09:03)
[2019-05-07] MEDS: EZETIMIBE 10MG PO SCH (09:03)
[2019-05-07] MEDS: Insulin DETEMIR 100 UNIT/ML X5UNITS SQ SCH ×2 (09:04→21:16)
[2019-05-07] MEDS: Insulin LISPRO 300 UNITS/3 ML VIAL SQ SCH ×4 (09:06→21:16)
[2019-05-07] MEDS: Budesonide/Formoterol 160/4.5 1 PUFF INH IH SCH ×2 (10:21→21:27)
--- NOTE | 2019-05-07 15:45 | Internal Med Progress Note ---
Date of Encounter: 05/07/19 Time of Encounter: 15:30 - Assessment and plan (1) Weakness Current Visit: No Status: Acute Assessment and plan: April 24. Continue PT/OT intervention. (2) Hyperlipidemia Current Visit: Yes Status: Acute Assessment and plan: April 24. Continue Zetia Qualifiers: Hyperlipidemia type: unspecified Qualified Code(s): E78.5 - Hyperlipidemia, unspecified (3) Low vitamin D level Current Visit: Yes Status: Acute Assessment and plan: April 24. Vitamin D level was 17 on 04/12/2019. Continue vitamin D supplement (4) Hypertension Current Visit: Yes Status: Chronic Assessment and plan: April 24. Continue Lopressor and Aldactone. Qualifiers: Hypertension type: essential hypertension Qualified Code(s): I10 - Essential (primary) hypertension (5) Anxiety and depression Current Visit: Yes Status: Chronic Assessment and plan: April 24. Continue Wellbutrin, Ativan, and Zoloft (6) Diabetes Current Visit: No Status: Chronic Assessment and plan: April 24. Continue Levemir and Accu-Cheks with SSI April 26. Blood sugars are above desirable level. Increase Levemir to 20 units twice a day. Continue Accu-Cheks with SSI. April 29. Blood sugars have remained elevated. Levemir dose is now 70 units twice daily. Continue Accu-Cheks with SSI. May 02. Blood sugars improved but still above desirable range. Increase Levemir from 100 units bid to 120 units bid. May 05. She states she follows routinely with an roadability machine operator. She has been on multiple oral medications in the past but states "they did not work". She reports GI upset using metformin. Blood sugars are still above desirable level. Increase Levemir to 140 units twice daily. May 07. Blood sugars are improved. Continue present Rx. Qualifiers: Diabetes mellitus type: type 2 Diabetes mellitus complication status: with other specified complication Qualified Code(s): E11.69 - Type 2 diabetes mellitus with other specified complication; Z79.4 - penitentiary (current) use of insulin (7) Lung cancer Current Visit: No Status: Acute Assessment and plan: April 24. As per oncologist Qualifiers: Laterality: unspecified laterality Lung location: unspecified part of lung Qualified Code(s): C34.90 - Malignant neoplasm of unspecified part of unspecified bronchus or lung (8) Neuropathy Current Visit: Yes Status: Chronic Assessment and plan: April 24. Probable DPN. Continue Lyrica. (9) COPD (chronic obstructive pulmonary disease) Current Visit: Yes Status: Chronic Assessment and plan: April 24. Continue Symbicort, DuoNeb, and prn albuterol. Qualifiers: COPD type: unspecified COPD Qualified Code(s): J44.9 - Chronic obstructive pulmonary disease, unspecified - Subjective Interval history: April 24. She has no new complaints except she has a "slight ringing" in her head and feels "disconnected". April 26. She has no new complaints. April 29. She has no new complaints except mild discomfort in her legs and lower back. May 02. She has no new complaints. May 05. She has no new complaints and feels well. May 07. She has no new complaints at present time. She had vomiting last evening. Labs and KUB were unremarkable. She does not complain of nausea at present time. - Constitutional Vitals: Temp Pulse Resp BP Pulse Ox 97.1 F L 62 20 128/66 96 05/07/19 07:08 05/07/19 07:08 05/07/19 07:08 05/07/19 07:08 05/07/19 07:08 Exam: She is resting comfortably on the side of the bed and appears in no acute distress. She is eating lunch and denies nausea. I reviewed her medications and lab results. Internal Medicine: Result - Labs CBC & Chem 7: 05/06/19 22:18 05/06/19 22:18 Labs: Short CBC 05/06/19 Range/Units 22:18 WBC 7.6 (4.3-11.1) K/mcL Hgb 14.1 (11.5-15.4) g/dL Hct 42.9 (35.3-44.9) % Plt Count 159 (140-400) K/mcL Neutrophils # 5.9 (1.6-8.9) K/mcL BMP 05/06/19 22:18 Sodium 136 Potassium 4.0 Chloride 97 L Carbon Dioxide 31 H BUN 14 Creatinine 0.99 Glucose 230 H Calcium 9.4 - Impressions Impressions KUB X-Ray 05/06/19 22:41 IMPRESSION: 1. There is a normal bowel gas pattern without evidence of obstruction. D/ / Mars Valdez MD / Mars Valdez MD Interpreting Provider: Mars Valdez MD Consult Discharge Plan - Plan Referrals: Reuben Melara DO [Primary Care Provider] - 1 week
[2019-05-07] MEDS: *HR* HYDROcodone/Acet 10/325 mg TABLET PO PRN (21:12)
[2019-05-07] MEDS: Ondansetron ODT 4 MG TAB.RAPDIS SL PRN (21:21)
[2019-05-08] MEDS: Insulin LISPRO 300 UNITS/3 ML VIAL SQ SCH ×4 (07:54→21:04)
[2019-05-08] MEDS: Nicotine 21 MG PATCH.TD24 TD SCH (08:27)
[2019-05-08] MEDS: BuPROPion XL (24 HR) 150 MG TABLET PO SCH (08:28)
[2019-05-08] MEDS: Metoclopramide 10 MG/10 ML UD.LIQ PO SCH ×4 (08:28→21:04)
[2019-05-08] MEDS: Spironolactone 25 MG TABLET PO SCH (08:28)
[2019-05-08] MEDS: Cholecalciferol (D-3) 1,000 UNIT (25MCG) TABLET PO SCH (08:28)
[2019-05-08] MEDS: Vitamin B Complex/Vit C/Vit E 1 EACH TABLET PO SCH (08:28)
[2019-05-08] MEDS: DALIRESP 500MCG PO SCH (08:29)
[2019-05-08] MEDS: EZETIMIBE 10MG PO SCH (08:29)
[2019-05-08] MEDS: Pregabalin 50 MG CAPSULE PO SCH (08:29)
[2019-05-08] MEDS: Insulin DETEMIR 100 UNIT/ML X5UNITS SQ SCH ×2 (08:35→21:05)
[2019-05-08] MEDS: *HR* LORazepam 1 MG TABLET PO PRN ×3 (08:39→21:14)
[2019-05-08] MEDS: Budesonide/Formoterol 160/4.5 1 PUFF INH IH SCH ×2 (10:19→22:44)
[2019-05-08] MEDS: *HR* HYDROcodone/Acet 10/325 mg TABLET PO PRN (17:00)
[2019-05-08] MEDS: GuaiFENesin/Codeine Oral Soln 5 ML UDC PO PRN (21:28)
[2019-05-09] MEDS: Pregabalin 50 MG CAPSULE PO SCH (09:25)
[2019-05-09] MEDS: Cholecalciferol (D-3) 1,000 UNIT (25MCG) TABLET PO SCH (09:25)
[2019-05-09] MEDS: BuPROPion XL (24 HR) 150 MG TABLET PO SCH (09:26)
[2019-05-09] MEDS: Vitamin B Complex/Vit C/Vit E 1 EACH TABLET PO SCH (09:26)
[2019-05-09] MEDS: Insulin DETEMIR 100 UNIT/ML X5UNITS SQ SCH ×2 (09:26→21:55)
[2019-05-09] MEDS: Spironolactone 25 MG TABLET PO SCH (09:26)
[2019-05-09] MEDS: Metoclopramide 10 MG/10 ML UD.LIQ PO SCH ×4 (09:27→21:55)
[2019-05-09] MEDS: Nicotine 21 MG PATCH.TD24 TD SCH (09:30)
[2019-05-09] MEDS: DALIRESP 500MCG PO SCH (09:32)
[2019-05-09] MEDS: EZETIMIBE 10MG PO SCH (09:32)
[2019-05-09] MEDS: *HR* LORazepam 1 MG TABLET PO PRN ×3 (09:35→21:55)
[2019-05-09] MEDS: Insulin LISPRO 300 UNITS/3 ML VIAL SQ SCH ×4 (09:37→21:55)
[2019-05-09] MEDS: Budesonide/Formoterol 160/4.5 1 PUFF INH IH SCH ×2 (09:39→23:00)
--- NOTE | 2019-05-09 16:35 | Internal Med Progress Note ---
Date of Encounter: 05/09/19 Time of Encounter: 16:28 - Assessment and plan (1) Weakness Current Visit: No Status: Acute Assessment and plan: April 24. Continue PT/OT intervention. (2) Hyperlipidemia Current Visit: Yes Status: Acute Assessment and plan: April 24. Continue Zetia Qualifiers: Hyperlipidemia type: unspecified Qualified Code(s): E78.5 - Hyperlipidemia, unspecified (3) Low vitamin D level Current Visit: Yes Status: Acute Assessment and plan: April 24. Vitamin D level was 17 on 04/12/2019. Continue vitamin D supplement (4) Hypertension Current Visit: Yes Status: Chronic Assessment and plan: April 24. Continue Lopressor and Aldactone. Qualifiers: Hypertension type: essential hypertension Qualified Code(s): I10 - Essential (primary) hypertension (5) Anxiety and depression Current Visit: Yes Status: Chronic Assessment and plan: April 24. Continue Wellbutrin, Ativan, and Zoloft (6) Diabetes Current Visit: No Status: Chronic Assessment and plan: April 24. Continue Levemir and Accu-Cheks with SSI April 26. Blood sugars are above desirable level. Increase Levemir to 20 units twice a day. Continue Accu-Cheks with SSI. April 29. Blood sugars have remained elevated. Levemir dose is now 70 units twice daily. Continue Accu-Cheks with SSI. May 02. Blood sugars improved but still above desirable range. Increase Levemir from 100 units bid to 120 units bid. May 05. She states she follows routinely with an application support intern. She has been on multiple oral medications in the past but states "they did not work". She reports GI upset using metformin. Blood sugars are still above desirable level. Increase Levemir to 140 units twice daily. May 07. Blood sugars are improved. Continue present Rx. Qualifiers: Diabetes mellitus type: type 2 Diabetes mellitus complication status: with other specified complication Qualified Code(s): E11.69 - Type 2 diabetes mellitus with other specified complication; Z79.4 - correction (current) use of insulin (7) Lung cancer Current Visit: No Status: Acute Assessment and plan: April 24. As per oncologist Qualifiers: Laterality: unspecified laterality Lung location: unspecified part of lung Qualified Code(s): C34.90 - Malignant neoplasm of unspecified part of unspecified bronchus or lung (8) Neuropathy Current Visit: Yes Status: Chronic Assessment and plan: April 24. Probable DPN. Continue Lyrica. (9) COPD (chronic obstructive pulmonary disease) Current Visit: Yes Status: Chronic Assessment and plan: April 24. Continue Symbicort, DuoNeb, and prn albuterol. Qualifiers: COPD type: unspecified COPD Qualified Code(s): J44.9 - Chronic obstructive pulmonary disease, unspecified (10) Vomiting Current Visit: Yes Status: Acute Assessment and plan: May 09. Decrease Zoloft and see if nausea lessens. Qualifiers: Vomiting type: unspecified Vomiting Intractability: non-intractable Nausea presence: with nausea Qualified Code(s): R11.2 - Nausea with vomiting, unspecified - Subjective Interval history: April 24. She has no new complaints except she has a "slight ringing" in her head and feels "disconnected". April 26. She has no new complaints. April 29. She has no new complaints except mild discomfort in her legs and lower back. May 02. She has no new complaints. May 05. She has no new complaints and feels well. May 07. She has no new complaints at present time. She had vomiting last evening. Labs and KUB were unremarkable. She does not complain of nausea at present time. May 09. She had another episode of vomiting earlier today. She complains of mild discomfort in her mid upper abdominal area. - Constitutional Vitals: Temp Pulse Resp BP Pulse Ox 97.7 F 64 16 135/66 95 05/09/19 06:56 05/09/19 06:56 05/09/19 09:40 05/09/19 06:56 05/09/19 09:40 Exam: She is sitting in a chair at bedside resting comfortably. Her affect is overall cheerful. Abdomen shows no significant tenderness to palpation. No masses or guarding are noted. Bowel sounds are diminished. I reviewed her medications and lab results. Internal Medicine: Result - Labs CBC & Chem 7: 05/06/19 22:18 05/06/19 22:18 Consult Discharge Plan - Plan Referrals: Reuben Melara DO [Primary Care Provider] - 1 week
[2019-05-09] MEDS: *HR* HYDROcodone/Acet 10/325 mg TABLET PO PRN (21:55)
[2019-05-10 06:28] LABS: Basophils % 0.2 %; Eosinophils # 0.1 K/mcL (0.0-0.6); Eosinophils % 1.5 %; Hematocrit 37.9 % (35.3-44.9); Hemoglobin 12.3 g/dL (11.5-15.4); Immature Granulocytes % 0.4 % (0-4); Lymphocytes # 0.9 K/mcL (0.6-4.6); Lymphocytes % 19.2 %; Mean Corpuscular HGB Conc 32.5 g/dL (31.6-35.5); Mean Corpuscular Hemoglobin 28.5 pg (28.0-33.3); Mean Corpuscular Volume 87.9 fL (83.0-100.0); Mean Platelet Volume 8.6 fL (9.4-12.4); Monocytes # 0.3 K/mcL (0.0-1.3); Monocytes % 6.6 %; Neutrophils # 3.4 K/mcL (1.6-8.9); Platelet Count 149 K/mcL (140-400); Red Blood Count 4.31 M/mcL (3.82-4.97); Red Cell Distribution Width 13.9 % (11.5-14.5); Segmented Neutrophils % 72.1 %; White Blood Count 4.7 K/mcL (4.3-11.1)
[2019-05-10 07:25] LABS: Alanine Aminotransferase 17 Units/L (7-52); Albumin 3.6 g/dL (3.5-5.7); Albumin/Globulin Ratio 1.4 (1.1-2.2); Alkaline Phosphatase 69 Units/L (34-104); Aspartate Amino Transferase 11 Units/L (13-39); BUN/Creatinine Ratio 17 (6-26); Bilirubin,Total 0.3 mg/dL (0.3-1.0); Blood Urea Nitrogen 12 mg/dL (8-23); Calcium 8.8 mg/dL (8.6-10.3); Carbon Dioxide 29 mEq/L (23-29); Chloride 102 mEq/L (98-107); Globulin 2.5 g/dL (2.4-3.5); Glucose 251 mg/dL (70-105); Osmolality,Calculated 296 (280-300); Sodium 139 mEq/L (136-145); Total Protein 6.1 g/dL (6.4-8.9); eGFR For African Americans > 60 (> 60); eGFR For Non-African Americans > 60 (> 60)
[2019-05-10] MEDS: Insulin DETEMIR 100 UNIT/ML X5UNITS SQ SCH ×2 (08:06→20:27)
[2019-05-10] MEDS: Insulin LISPRO 300 UNITS/3 ML VIAL SQ SCH ×4 (08:06→20:27)
[2019-05-10] MEDS: Nicotine 21 MG PATCH.TD24 TD SCH (08:10)
[2019-05-10] MEDS: Metoclopramide 10 MG/10 ML UD.LIQ PO SCH ×4 (08:12→21:00)
[2019-05-10] MEDS: *HR* HYDROcodone/Acet 10/325 mg TABLET PO PRN ×2 (08:12→17:59)
[2019-05-10] MEDS: Spironolactone 25 MG TABLET PO SCH (08:13)
[2019-05-10] MEDS: Vitamin B Complex/Vit C/Vit E 1 EACH TABLET PO SCH (08:13)
[2019-05-10] MEDS: BuPROPion XL (24 HR) 150 MG TABLET PO SCH (08:13)
[2019-05-10] MEDS: Cholecalciferol (D-3) 1,000 UNIT (25MCG) TABLET PO SCH (08:13)
[2019-05-10] MEDS: Pregabalin 50 MG CAPSULE PO SCH (08:13)
[2019-05-10] MEDS: DALIRESP 500MCG PO SCH (08:14)
[2019-05-10] MEDS: EZETIMIBE 10MG PO SCH (08:14)
[2019-05-10] MEDS: Budesonide/Formoterol 160/4.5 1 PUFF INH IH SCH ×2 (10:21→21:38)
[2019-05-10] MEDS: Ondansetron ODT 4 MG TAB.RAPDIS SL PRN (18:00)
[2019-05-10] MEDS: *HR* LORazepam 1 MG TABLET PO PRN (18:00)
[2019-05-10] MEDS: GuaiFENesin/Codeine Oral Soln 5 ML UDC PO PRN (18:06)
[2019-05-10] MEDS ORDERED: Insulin DETEMIR 100 UNIT/ML per UNIT SQ ONE (20:26)
[2019-05-11] MEDS: Budesonide/Formoterol 160/4.5 1 PUFF INH IH SCH ×2 (09:39→21:55)
[2019-05-11] MEDS: Nicotine 21 MG PATCH.TD24 TD SCH (10:15)
[2019-05-11] MEDS: *HR* HYDROcodone/Acet 10/325 mg TABLET PO PRN ×2 (10:17→20:18)
[2019-05-11] MEDS: *HR* LORazepam 1 MG TABLET PO PRN ×2 (10:17→20:18)
[2019-05-11] MEDS: Metoclopramide 10 MG/10 ML UD.LIQ PO SCH ×4 (10:18→20:18)
[2019-05-11] MEDS: Pregabalin 50 MG CAPSULE PO SCH (10:18)
[2019-05-11] MEDS: Ondansetron ODT 4 MG TAB.RAPDIS SL PRN (10:18)
[2019-05-11] MEDS: BuPROPion XL (24 HR) 150 MG TABLET PO SCH (10:18)
[2019-05-11] MEDS: Vitamin B Complex/Vit C/Vit E 1 EACH TABLET PO SCH (10:18)
[2019-05-11] MEDS: Cholecalciferol (D-3) 1,000 UNIT (25MCG) TABLET PO SCH (10:18)
[2019-05-11] MEDS: DALIRESP 500MCG PO SCH (10:19)
[2019-05-11] MEDS: Spironolactone 25 MG TABLET PO SCH (10:19)
[2019-05-11] MEDS: EZETIMIBE 10MG PO SCH (10:19)
[2019-05-11] MEDS: Insulin LISPRO 300 UNITS/3 ML VIAL SQ SCH ×4 (10:19→20:19)
[2019-05-11] MEDS: Insulin DETEMIR 100 UNIT/ML X5UNITS SQ SCH ×2 (11:55→20:18)
[2019-05-12] MEDS: Insulin LISPRO 300 UNITS/3 ML VIAL SQ SCH ×4 (08:11→20:11)
[2019-05-12] MEDS: Cholecalciferol (D-3) 1,000 UNIT (25MCG) TABLET PO SCH (08:15)
[2019-05-12] MEDS: EZETIMIBE 10MG PO SCH (08:15)
[2019-05-12] MEDS: DALIRESP 500MCG PO SCH (08:15)
[2019-05-12] MEDS: Vitamin B Complex/Vit C/Vit E 1 EACH TABLET PO SCH ×2 (08:15→08:23)
[2019-05-12] MEDS: BuPROPion XL (24 HR) 150 MG TABLET PO SCH (08:15)
[2019-05-12] MEDS: Pregabalin 50 MG CAPSULE PO SCH (08:15)
[2019-05-12] MEDS: Spironolactone 25 MG TABLET PO SCH (08:15)
[2019-05-12] MEDS: Metoclopramide 10 MG/10 ML UD.LIQ PO SCH ×4 (08:16→20:10)
[2019-05-12] MEDS: *HR* HYDROcodone/Acet 10/325 mg TABLET PO PRN ×2 (08:18→16:54)
[2019-05-12] MEDS: *HR* LORazepam 1 MG TABLET PO PRN ×3 (08:18→20:20)
[2019-05-12] MEDS: Nicotine 21 MG PATCH.TD24 TD SCH (08:18)
[2019-05-12] MEDS: Insulin DETEMIR 100 UNIT/ML X5UNITS SQ SCH ×2 (08:23→20:11)
[2019-05-12] MEDS: Budesonide/Formoterol 160/4.5 1 PUFF INH IH SCH ×2 (10:37→21:53)
--- NOTE | 2019-05-12 12:09 | Internal Med Progress Note ---
Date of Encounter: 05/12/19 Time of Encounter: 12:00 - Assessment and plan (1) Weakness Current Visit: No Status: Acute Assessment and plan: April 24. Continue PT/OT intervention. (2) Hyperlipidemia Current Visit: Yes Status: Acute Assessment and plan: April 24. Continue Zetia Qualifiers: Hyperlipidemia type: unspecified Qualified Code(s): E78.5 - Hyperlipidemia, unspecified (3) Low vitamin D level Current Visit: Yes Status: Acute Assessment and plan: April 24. Vitamin D level was 17 on 04/12/2019. Continue vitamin D supplement (4) Hypertension Current Visit: Yes Status: Chronic Assessment and plan: April 24. Continue Lopressor and Aldactone. Qualifiers: Hypertension type: essential hypertension Qualified Code(s): I10 - Essential (primary) hypertension (5) Anxiety and depression Current Visit: Yes Status: Chronic Assessment and plan: April 24. Continue Wellbutrin, Ativan, and Zoloft (6) Diabetes Current Visit: No Status: Chronic Assessment and plan: April 24. Continue Levemir and Accu-Cheks with SSI April 26. Blood sugars are above desirable level. Increase Levemir to 20 units twice a day. Continue Accu-Cheks with SSI. April 29. Blood sugars have remained elevated. Levemir dose is now 70 units twice daily. Continue Accu-Cheks with SSI. May 02. Blood sugars improved but still above desirable range. Increase Levemir from 100 units bid to 120 units bid. May 05. She states she follows routinely with an delinquent tax collector assistant. She has been on multiple oral medications in the past but states "they did not work". She reports GI upset using metformin. Blood sugars are still above desirable level. Increase Levemir to 140 units twice daily. May 07. Blood sugars are improved. Continue present Rx. May 12. Blood sugars are satisfactory. Continue present Rx. Qualifiers: Diabetes mellitus type: type 2 Diabetes mellitus complication status: with other specified complication Qualified Code(s): E11.69 - Type 2 diabetes mellitus with other specified complication; Z79.4 - rn long term care (current) use of insulin (7) Lung cancer Current Visit: No Status: Acute Assessment and plan: April 24. As per oncologist Qualifiers: Laterality: unspecified laterality Lung location: unspecified part of lung Qualified Code(s): C34.90 - Malignant neoplasm of unspecified part of unspecified bronchus or lung (8) Neuropathy Current Visit: Yes Status: Chronic Assessment and plan: April 24. Probable DPN. Continue Lyrica. (9) COPD (chronic obstructive pulmonary disease) Current Visit: Yes Status: Chronic Assessment and plan: April 24. Continue Symbicort, DuoNeb, and prn albuterol. Qualifiers: COPD type: unspecified COPD Qualified Code(s): J44.9 - Chronic obstructive pulmonary disease, unspecified (10) Vomiting Current Visit: Yes Status: Acute Assessment and plan: May 09. Decrease Zoloft and see if nausea lessens. May 12. She has no complaints of nausea. Remain on lower dose Zoloft. Qualifiers: Vomiting type: unspecified Vomiting Intractability: non-intractable Nausea presence: with nausea Qualified Code(s): R11.2 - Nausea with vomiting, unspecified - Subjective Interval history: April 24. She has no new complaints except she has a "slight ringing" in her head and feels "disconnected". April 26. She has no new complaints. April 29. She has no new complaints except mild discomfort in her legs and lower back. May 02. She has no new complaints. May 05. She has no new complaints and feels well. May 07. She has no new complaints at present time. She had vomiting last evening. Labs and KUB were unremarkable. She does not complain of nausea at present time. May 09. She had another episode of vomiting earlier today. She complains of mild discomfort in her mid upper abdominal area. May 12. She has no new complaints. She states she wants to go home. - Constitutional Vitals: Temp Pulse Resp BP Pulse Ox 97.4 F L 64 12 134/58 97 05/12/19 07:34 05/12/19 07:34 05/12/19 10:37 05/12/19 07:34 05/12/19 10:37 Exam: She is sitting in a chair at bedside resting comfortably. Her affect is bright and cheerful. I reviewed her medications and lab results. Internal Medicine: Result - Labs CBC & Chem 7: 05/10/19 05:30 05/10/19 05:30 Consult Discharge Plan - Plan Referrals: Reuben Melara DO [Primary Care Provider] - 1 week
[2019-05-12] MEDS: GuaiFENesin/Codeine Oral Soln 5 ML UDC PO PRN ×2 (16:54→20:20)
[2019-05-12] MEDS: Ondansetron ODT 4 MG TAB.RAPDIS SL PRN (20:10)
[2019-05-13] MEDS: Insulin LISPRO 300 UNITS/3 ML VIAL SQ SCH ×4 (08:06→21:16)
[2019-05-13] MEDS: Nicotine 21 MG PATCH.TD24 TD SCH (08:40)
[2019-05-13] MEDS: Metoclopramide 10 MG/10 ML UD.LIQ PO SCH ×4 (08:40→21:11)
[2019-05-13] MEDS: Spironolactone 25 MG TABLET PO SCH (08:41)
[2019-05-13] MEDS: EZETIMIBE 10MG PO SCH (08:42)
[2019-05-13] MEDS: Pregabalin 50 MG CAPSULE PO SCH (08:42)
[2019-05-13] MEDS: Vitamin B Complex/Vit C/Vit E 1 EACH TABLET PO SCH (08:42)
[2019-05-13] MEDS: BuPROPion XL (24 HR) 150 MG TABLET PO SCH (08:42)
[2019-05-13] MEDS: Cholecalciferol (D-3) 1,000 UNIT (25MCG) TABLET PO SCH (08:42)
[2019-05-13] MEDS: DALIRESP 500MCG PO SCH (08:42)
[2019-05-13] MEDS: *HR* LORazepam 1 MG TABLET PO PRN ×2 (08:49→21:16)
[2019-05-13] MEDS: Insulin DETEMIR 100 UNIT/ML X5UNITS SQ SCH ×2 (08:50→21:11)
[2019-05-13] MEDS: Budesonide/Formoterol 160/4.5 1 PUFF INH IH SCH ×2 (10:23→21:48)
[2019-05-13] MEDS: Ondansetron ODT 4 MG TAB.RAPDIS SL PRN (12:19)
[2019-05-13] MEDS: GuaiFENesin/Codeine Oral Soln 5 ML UDC PO PRN (21:15)
[2019-05-14] MEDS: Metoclopramide 10 MG/10 ML UD.LIQ PO SCH ×4 (06:43→20:12)
[2019-05-14] MEDS: *HR* LORazepam 1 MG TABLET PO PRN ×2 (08:29→20:13)
[2019-05-14] MEDS: Cholecalciferol (D-3) 1,000 UNIT (25MCG) TABLET PO SCH (08:29)
[2019-05-14] MEDS: Vitamin B Complex/Vit C/Vit E 1 EACH TABLET PO SCH ×2 (08:29→08:44)
[2019-05-14] MEDS: Pregabalin 50 MG CAPSULE PO SCH (08:29)
[2019-05-14] MEDS: Ondansetron ODT 4 MG TAB.RAPDIS SL PRN ×2 (08:29→16:38)
[2019-05-14] MEDS: Insulin LISPRO 300 UNITS/3 ML VIAL SQ SCH ×4 (08:29→20:12)
[2019-05-14] MEDS: BuPROPion XL (24 HR) 150 MG TABLET PO SCH (08:30)
[2019-05-14] MEDS: Spironolactone 25 MG TABLET PO SCH (08:30)
[2019-05-14] MEDS: *HR* HYDROcodone/Acet 10/325 mg TABLET PO PRN (08:30)
[2019-05-14] MEDS: Nicotine 21 MG PATCH.TD24 TD SCH (08:30)
[2019-05-14] MEDS: Insulin DETEMIR 100 UNIT/ML X5UNITS SQ SCH ×2 (08:31→20:13)
[2019-05-14] MEDS: EZETIMIBE 10MG PO SCH (08:31)
[2019-05-14] MEDS: DALIRESP 500MCG PO SCH (08:31)
[2019-05-14] MEDS: Budesonide/Formoterol 160/4.5 1 PUFF INH IH SCH ×2 (09:42→22:35)
[2019-05-14] MEDS ORDERED: Bisacodyl 10 MG RECTAL SUPPOSITORY RC ONE (13:24)
[2019-05-14] MEDS ORDERED: Lidocaine Jelly 6ml 1 APPL/6 ML JEL.PF.APP TP ONE (13:26)
[2019-05-14] MEDS ORDERED: Preparation H Ointment 30 GM TUBE RC PRN (13:27)
--- NOTE | 2019-05-14 16:50 | Internal Med Progress Note ---
Date of Encounter: 05/14/19 Time of Encounter: 16:43 - Assessment and plan (1) Weakness Current Visit: No Status: Acute Assessment and plan: April 24. Continue PT/OT intervention. (2) Hyperlipidemia Current Visit: Yes Status: Acute Assessment and plan: April 24. Continue Zetia Qualifiers: Hyperlipidemia type: unspecified Qualified Code(s): E78.5 - Hyperlipidemia, unspecified (3) Low vitamin D level Current Visit: Yes Status: Acute Assessment and plan: April 24. Vitamin D level was 17 on 04/12/2019. Continue vitamin D supplement (4) Hypertension Current Visit: Yes Status: Chronic Assessment and plan: April 24. Continue Lopressor and Aldactone. Qualifiers: Hypertension type: essential hypertension Qualified Code(s): I10 - Essential (primary) hypertension (5) Anxiety and depression Current Visit: Yes Status: Chronic Assessment and plan: April 24. Continue Wellbutrin, Ativan, and Zoloft (6) Diabetes Current Visit: No Status: Chronic Assessment and plan: April 24. Continue Levemir and Accu-Cheks with SSI April 26. Blood sugars are above desirable level. Increase Levemir to 20 units twice a day. Continue Accu-Cheks with SSI. April 29. Blood sugars have remained elevated. Levemir dose is now 70 units twice daily. Continue Accu-Cheks with SSI. May 02. Blood sugars improved but still above desirable range. Increase Levemir from 100 units bid to 120 units bid. May 05. She states she follows routinely with an stack supervisor. She has been on multiple oral medications in the past but states "they did not work". She reports GI upset using metformin. Blood sugars are still above desirable level. Increase Levemir to 140 units twice daily. May 07. Blood sugars are improved. Continue present Rx. May 12. Blood sugars are satisfactory. Continue present Rx. Qualifiers: Diabetes mellitus type: type 2 Diabetes mellitus complication status: with other specified complication Qualified Code(s): E11.69 - Type 2 diabetes mellitus with other specified complication; Z79.4 - termite helper (current) use of insulin (7) Lung cancer Current Visit: No Status: Acute Assessment and plan: April 24. As per oncologist Qualifiers: Laterality: unspecified laterality Lung location: unspecified part of lung Qualified Code(s): C34.90 - Malignant neoplasm of unspecified part of unspecified bronchus or lung (8) Neuropathy Current Visit: Yes Status: Chronic Assessment and plan: April 24. Probable DPN. Continue Lyrica. (9) COPD (chronic obstructive pulmonary disease) Current Visit: Yes Status: Chronic Assessment and plan: April 24. Continue Symbicort, DuoNeb, and prn albuterol. Qualifiers: COPD type: unspecified COPD Qualified Code(s): J44.9 - Chronic obstructive pulmonary disease, unspecified (10) Vomiting Current Visit: Yes Status: Acute Assessment and plan: May 09. Decrease Zoloft and see if nausea lessens. May 12. She has no complaints of nausea. Remain on lower dose Zoloft. May 14. Rx ordered for constipation. Continue to monitor. Qualifiers: Vomiting type: unspecified Vomiting Intractability: non-intractable Nausea presence: with nausea Qualified Code(s): R11.2 - Nausea with vomiting, unspecified - Subjective Interval history: April 24. She has no new complaints except she has a "slight ringing" in her head and feels "disconnected". April 26. She has no new complaints. April 29. She has no new complaints except mild discomfort in her legs and lower back. May 02. She has no new complaints. May 05. She has no new complaints and feels well. May 07. She has no new complaints at present time. She had vomiting last evening. Labs and KUB were unremarkable. She does not complain of nausea at present time. May 09. She had another episode of vomiting earlier today. She complains of mild discomfort in her mid upper abdominal area. May 12. She has no new complaints. She states she wants to go home. May 14. She has no new complaints except abdominal discomfort. She reports constipation was partially relieved by laxative administration yesterday. - Constitutional Vitals: Temp Pulse Resp BP Pulse Ox 97.9 F 73 16 148/77 96 05/14/19 07:36 05/14/19 07:36 05/14/19 09:43 05/14/19 07:36 05/14/19 09:43 Exam: She is resting comfortably in bed appears in minimal distress. Her affect is overall cheerful. Extremity show no pitting edema. I reviewed her medications and lab results. Internal Medicine: Result - Labs CBC & Chem 7: 05/10/19 05:30 05/10/19 05:30 Consult Discharge Plan - Plan Referrals: Reuben Melara DO [Primary Care Provider] - 1 week
[2019-05-14] MEDS: GuaiFENesin/Codeine Oral Soln 5 ML UDC PO PRN (20:12)
[2019-05-15] MEDS: Metoclopramide 10 MG/10 ML UD.LIQ PO SCH ×4 (06:01→20:45)
[2019-05-15] MEDS: Insulin LISPRO 300 UNITS/3 ML VIAL SQ SCH ×4 (07:49→20:46)
[2019-05-15] MEDS: Nicotine 21 MG PATCH.TD24 TD SCH (09:28)
[2019-05-15] MEDS: BuPROPion XL (24 HR) 150 MG TABLET PO SCH (09:31)
[2019-05-15] MEDS: Cholecalciferol (D-3) 1,000 UNIT (25MCG) TABLET PO SCH (09:31)
[2019-05-15] MEDS: Spironolactone 25 MG TABLET PO SCH (09:31)
[2019-05-15] MEDS: Pregabalin 50 MG CAPSULE PO SCH (09:31)
[2019-05-15] MEDS: Vitamin B Complex/Vit C/Vit E 1 EACH TABLET PO SCH (09:31)
[2019-05-15] MEDS: Insulin DETEMIR 100 UNIT/ML X5UNITS SQ SCH ×3 (09:32→20:46)
[2019-05-15] MEDS: EZETIMIBE 10MG PO SCH (09:32)
[2019-05-15] MEDS: DALIRESP 500MCG PO SCH (09:32)
[2019-05-15] MEDS: *HR* HYDROcodone/Acet 10/325 mg TABLET PO PRN ×2 (09:43→18:05)
[2019-05-15] MEDS: Ondansetron ODT 4 MG TAB.RAPDIS SL PRN ×2 (09:43→18:03)
[2019-05-15] MEDS: *HR* LORazepam 1 MG TABLET PO PRN ×3 (09:43→20:43)
[2019-05-15] MEDS: Budesonide/Formoterol 160/4.5 1 PUFF INH IH SCH ×2 (10:42→21:47)
[2019-05-15] MEDS: GuaiFENesin/Codeine Oral Soln 5 ML UDC PO PRN ×2 (16:35→20:44)
[2019-05-16] MEDS: Nicotine 21 MG PATCH.TD24 TD SCH (08:33)
[2019-05-16] MEDS: Metoclopramide 10 MG/10 ML UD.LIQ PO SCH ×4 (08:34→20:50)
[2019-05-16] MEDS: *HR* HYDROcodone/Acet 10/325 mg TABLET PO PRN (08:34)
[2019-05-16] MEDS: Ondansetron ODT 4 MG TAB.RAPDIS SL PRN (08:35)
[2019-05-16] MEDS: BuPROPion XL (24 HR) 150 MG TABLET PO SCH (08:36)
[2019-05-16] MEDS: *HR* LORazepam 1 MG TABLET PO PRN ×2 (08:36→20:49)
[2019-05-16] MEDS: Vitamin B Complex/Vit C/Vit E 1 EACH TABLET PO SCH (08:36)
[2019-05-16] MEDS: Spironolactone 25 MG TABLET PO SCH (08:36)
[2019-05-16] MEDS: Insulin LISPRO 300 UNITS/3 ML VIAL SQ SCH ×4 (08:37→20:49)
[2019-05-16] MEDS: Cholecalciferol (D-3) 1,000 UNIT (25MCG) TABLET PO SCH (08:37)
[2019-05-16] MEDS: Pregabalin 50 MG CAPSULE PO SCH (08:37)
[2019-05-16] MEDS: Insulin DETEMIR 100 UNIT/ML X5UNITS SQ SCH ×2 (08:38→20:50)
[2019-05-16] MEDS: DALIRESP 500MCG PO SCH (08:40)
[2019-05-16] MEDS: EZETIMIBE 10MG PO SCH (08:40)
[2019-05-16] MEDS: GuaiFENesin/Codeine Oral Soln 5 ML UDC PO PRN ×2 (08:47→20:49)
[2019-05-16] MEDS: Budesonide/Formoterol 160/4.5 1 PUFF INH IH SCH ×2 (10:21→22:27)
[2019-05-16] MEDS ORDERED: *HR* Promethazine 25 MG/ML VIAL IM ONE (18:07)
[2019-05-17] MEDS: Nicotine 21 MG PATCH.TD24 TD SCH (09:25)
[2019-05-17] MEDS: Insulin DETEMIR 100 UNIT/ML X5UNITS SQ SCH ×2 (09:26→20:55)
[2019-05-17] MEDS: Metoclopramide 10 MG/10 ML UD.LIQ PO SCH ×4 (09:29→20:55)
[2019-05-17] MEDS: Pregabalin 50 MG CAPSULE PO SCH (09:29)
[2019-05-17] MEDS: Spironolactone 25 MG TABLET PO SCH (09:30)
[2019-05-17] MEDS: Cholecalciferol (D-3) 1,000 UNIT (25MCG) TABLET PO SCH (09:30)
[2019-05-17] MEDS: *HR* HYDROcodone/Acet 10/325 mg TABLET PO PRN ×2 (09:30→20:55)
[2019-05-17] MEDS: BuPROPion XL (24 HR) 150 MG TABLET PO SCH (09:30)
[2019-05-17] MEDS: Insulin LISPRO 300 UNITS/3 ML VIAL SQ SCH ×4 (09:31→20:55)
[2019-05-17] MEDS: Budesonide/Formoterol 160/4.5 1 PUFF INH IH SCH ×2 (09:34→21:14)
[2019-05-17] MEDS: EZETIMIBE 10MG PO SCH (09:37)
[2019-05-17] MEDS: DALIRESP 500MCG PO SCH (09:37)
[2019-05-17 11:04] LABS: Basophils % 0.4 %; Eosinophils # 0.1 K/mcL (0.0-0.6); Eosinophils % 1.7 %; Hematocrit 42.6 % (35.3-44.9); Hemoglobin 13.9 g/dL (11.5-15.4); Immature Granulocytes % 0.4 % (0-4); Lymphocytes # 0.7 K/mcL (0.6-4.6); Lymphocytes % 15.9 %; Mean Corpuscular HGB Conc 32.6 g/dL (31.6-35.5); Mean Corpuscular Hemoglobin 28.8 pg (28.0-33.3); Mean Corpuscular Volume 88.2 fL (83.0-100.0); Mean Platelet Volume 8.7 fL (9.4-12.4); Monocytes # 0.3 K/mcL (0.0-1.3); Monocytes % 5.7 %; Neutrophils # 3.5 K/mcL (1.6-8.9); Platelet Count 175 K/mcL (140-400); Red Blood Count 4.83 M/mcL (3.82-4.97); Segmented Neutrophils % 75.9 %; White Blood Count 4.6 K/mcL (4.3-11.1)
[2019-05-17 11:22] LABS: Alanine Aminotransferase 18 Units/L (7-52); Albumin/Globulin Ratio 1.4 (1.1-2.2); Alkaline Phosphatase 84 Units/L (34-104); Aspartate Amino Transferase 14 Units/L (13-39); BUN/Creatinine Ratio 17 (6-26); Bilirubin,Total 0.5 mg/dL (0.3-1.0); Blood Urea Nitrogen 15 mg/dL (8-23); Calcium 9.1 mg/dL (8.6-10.3); Carbon Dioxide 32 mEq/L (23-29); Chloride 104 mEq/L (98-107); Globulin 2.9 g/dL (2.4-3.5); Glucose 304 mg/dL (70-105); Lipase 4 Units/L (11-82); Osmolality,Calculated 296 (280-300); Potassium 4.2 mEq/L (3.5-5.1); Sodium 137 mEq/L (136-145); Total Protein 6.9 g/dL (6.4-8.9); eGFR For African Americans > 60 (> 60); eGFR For Non-African Americans > 60 (> 60)
[2019-05-17] MEDS: *HR* LORazepam 1 MG TABLET PO PRN ×2 (12:08→20:54)
[2019-05-17] MEDS: GuaiFENesin/Codeine Oral Soln 5 ML UDC PO PRN (12:08)
--- NOTE | 2019-05-17 12:37 | Internal Med Progress Note ---
Date of Encounter: 05/17/19 Time of Encounter: 12:25 - Assessment and plan (1) Weakness Current Visit: No Status: Acute Assessment and plan: April 24. Continue PT/OT intervention. (2) Hyperlipidemia Current Visit: Yes Status: Acute Assessment and plan: April 24. Continue Zetia Qualifiers: Hyperlipidemia type: unspecified Qualified Code(s): E78.5 - Hyperlipidemia, unspecified (3) Low vitamin D level Current Visit: Yes Status: Acute Assessment and plan: April 24. Vitamin D level was 17 on 04/12/2019. Continue vitamin D supplement (4) Hypertension Current Visit: Yes Status: Chronic Assessment and plan: April 24. Continue Lopressor and Aldactone. Qualifiers: Hypertension type: essential hypertension Qualified Code(s): I10 - Essential (primary) hypertension (5) Anxiety and depression Current Visit: Yes Status: Chronic Assessment and plan: April 24. Continue Wellbutrin, Ativan, and Zoloft (6) Diabetes Current Visit: No Status: Chronic Assessment and plan: April 24. Continue Levemir and Accu-Cheks with SSI April 26. Blood sugars are above desirable level. Increase Levemir to 20 units twice a day. Continue Accu-Cheks with SSI. April 29. Blood sugars have remained elevated. Levemir dose is now 70 units twice daily. Continue Accu-Cheks with SSI. May 02. Blood sugars improved but still above desirable range. Increase Levemir from 100 units bid to 120 units bid. May 05. She states she follows routinely with an pilot steam yacht. She has been on multiple oral medications in the past but states "they did not work". She reports GI upset using metformin. Blood sugars are still above desirable level. Increase Levemir to 140 units twice daily. May 07. Blood sugars are improved. Continue present Rx. May 12. Blood sugars are satisfactory. Continue present Rx. Qualifiers: Diabetes mellitus type: type 2 Diabetes mellitus complication status: with other specified complication Qualified Code(s): E11.69 - Type 2 diabetes mellitus with other specified complication; Z79.4 - senior care (current) use of insulin (7) Lung cancer Current Visit: No Status: Acute Assessment and plan: April 24. As per oncologist Qualifiers: Laterality: unspecified laterality Lung location: unspecified part of lung Qualified Code(s): C34.90 - Malignant neoplasm of unspecified part of unspecified bronchus or lung (8) Neuropathy Current Visit: Yes Status: Chronic Assessment and plan: April 24. Probable DPN. Continue Lyrica. (9) COPD (chronic obstructive pulmonary disease) Current Visit: Yes Status: Chronic Assessment and plan: April 24. Continue Symbicort, DuoNeb, and prn albuterol. Qualifiers: COPD type: unspecified COPD Qualified Code(s): J44.9 - Chronic obstructive pulmonary disease, unspecified (10) Vomiting Current Visit: Yes Status: Acute Assessment and plan: May 09. Decrease Zoloft and see if nausea lessens. May 12. She has no complaints of nausea. Remain on lower dose Zoloft. May 14. Rx ordered for constipation. Continue to monitor. May 17. KUB and labs unremarkable. Continue Zofran and Phenergan as needed. Qualifiers: Vomiting type: unspecified Vomiting Intractability: non-intractable Nausea presence: with nausea Qualified Code(s): R11.2 - Nausea with vomiting, unspecified - Subjective Interval history: April 24. She has no new complaints except she has a "slight ringing" in her head and feels "disconnected". April 26. She has no new complaints. April 29. She has no new complaints except mild discomfort in her legs and lower back. May 02. She has no new complaints. May 05. She has no new complaints and feels well. May 07. She has no new complaints at present time. She had vomiting last evening. Labs and KUB were unremarkable. She does not complain of nausea at present time. May 09. She had another episode of vomiting earlier today. She complains of mild discomfort in her mid upper abdominal area. May 12. She has no new complaints. She states she wants to go home. May 14. She has no new complaints except abdominal discomfort. She reports constipation was partially relieved by laxative administration yesterday. May 17. She has no new complaints. She went on day pass yesterday and had multiple episodes of vomiting. She denies significant pain. She reports the vomiting has been intermittent for several weeks. - Constitutional Vitals: Temp Pulse Resp BP Pulse Ox 97.7 F 71 15 129/74 96 05/17/19 06:54 05/17/19 06:54 05/17/19 06:54 05/17/19 06:54 05/17/19 06:54 Exam: She is sitting on the side of bed eating lunch and appears in no acute distress. Her affect is bright and cheerful. She states she feels nauseated. I reviewed her medications and lab results. I reviewed KUB report. Internal Medicine: Result - Labs CBC & Chem 7: 05/17/19 10:56 05/17/19 10:56 Labs: Short CBC 05/17/19 Range/Units 10:56 WBC 4.6 (4.3-11.1) K/mcL Hgb 13.9 (11.5-15.4) g/dL Hct 42.6 (35.3-44.9) % Plt Count 175 (140-400) K/mcL Neutrophils # 3.5 (1.6-8.9) K/mcL BMP 05/17/19 10:56 Sodium 137 Potassium 4.2 Chloride 104 Carbon Dioxide 32 H BUN 15 Creatinine 0.88 Glucose 304 H Calcium 9.1 Liver Function 05/17/19 Range/Units 10:56 Total Bilirubin 0.5 (0.3-1.0) mg/dL AST 14 (13-39) Units/L ALT 18 (7-52) Units/L Alkaline Phosphatase 84 (34-104) Units/L Albumin 4.0 (3.5-5.7) g/dL - Impressions Impressions KUB X-Ray 05/17/19 12:11 IMPRESSION: No acute findings. D/ / Melonie Pettit MD / Melonie Pettit MD Interpreting Provider: Melonie Pettit MD Consult Discharge Plan - Plan Referrals: Reuben Melara DO [Primary Care Provider] - 1 week
[2019-05-17] MEDS ORDERED: MOM Conc 10 ML UD.LIQ PO ONE (23:54)
[2019-05-18 06:53] VITALS: BP 143/69
[2019-05-18] MEDS: Insulin DETEMIR 100 UNIT/ML X5UNITS SQ SCH (08:26)
[2019-05-18] MEDS: Insulin LISPRO 300 UNITS/3 ML VIAL SQ SCH (08:27)
[2019-05-18] MEDS: BuPROPion XL (24 HR) 150 MG TABLET PO SCH (08:30)
[2019-05-18] MEDS: Metoclopramide 10 MG/10 ML UD.LIQ PO SCH (08:30)
[2019-05-18] MEDS: Spironolactone 25 MG TABLET PO SCH (08:31)
[2019-05-18] MEDS: Cholecalciferol (D-3) 1,000 UNIT (25MCG) TABLET PO SCH (08:31)
[2019-05-18] MEDS: Pregabalin 50 MG CAPSULE PO SCH (08:31)
[2019-05-18] MEDS: DALIRESP 500MCG PO SCH (08:32)
[2019-05-18] MEDS: Nicotine 21 MG PATCH.TD24 TD SCH (08:32)
[2019-05-18] MEDS: EZETIMIBE 10MG PO SCH (08:33)
[2019-05-18] MEDS: *HR* HYDROcodone/Acet 10/325 mg TABLET PO PRN (08:36)
[2019-05-18] MEDS: Budesonide/Formoterol 160/4.5 1 PUFF INH IH SCH (09:12)
--- NOTE | 2019-05-18 09:50 | Discharge Summary ---
Date of Encounter: 05/18/19 Time of Encounter: 09:35 - Discharge Diagnosis (1) Weakness Priority: Primary Status: Acute (2) Hyperlipidemia Priority: Secondary Status: Chronic Qualifiers: Hyperlipidemia type: unspecified Qualified Code(s): E78.5 - Hyperlipidemia, unspecified (3) Low vitamin D level Priority: Secondary Status: Chronic (4) Hypertension Priority: Secondary Status: Chronic Qualifiers: Hypertension type: essential hypertension Qualified Code(s): I10 - Essential (primary) hypertension (5) Anxiety and depression Priority: Secondary Status: Chronic (6) Diabetes Priority: Secondary Status: Chronic Qualifiers: Diabetes mellitus type: type 2 Diabetes mellitus complication status: with other specified complication Qualified Code(s): E11.69 - Type 2 diabetes mellitus with other specified complication; 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 (7) Lung cancer Priority: Secondary Status: Chronic Qualifiers: Laterality: unspecified laterality Lung location: unspecified part of lung Qualified Code(s): C34.90 - Malignant neoplasm of unspecified part of unspecified bronchus or lung (8) Neuropathy Priority: Secondary Status: Chronic (9) COPD (chronic obstructive pulmonary disease) Priority: Secondary Status: Chronic Qualifiers: COPD type: unspecified COPD Qualified Code(s): J44.9 - Chronic obstructive pulmonary disease, unspecified (10) Vomiting Priority: Secondary Status: Acute Qualifiers: Vomiting type: unspecified Vomiting Intractability: non-intractable Nausea presence: with nausea Qualified Code(s): R11.2 - Nausea with vomiting, unspecified Hospital course: Ms. North is a 58 year old female who was transferred to [facility] swing bed following [facility] hospitalizations April 11 and April 17. The initial hospitalization was due to syncopal episode with fall and weakness. She declined ECF placement recommended at discharge. She had a fall at home from weakness leading to the second admission. Workup included brain MRIs and lumbar puncture. Definitive etiology was not found but hypoglycemia was suspected as etiology of the fall. It was felt she would benefit from rehabilitation therapy in swing bed prior to returning to independent living. I saw her April 23 and performed the swing bed history and physical. She had physical therapy and occupational therapy evaluations with ongoing intervention and made satisfactory progress over the course of her swing bed stay. On May 18 arrangements were complete for her to be discharged home. She had occasional episodes of vomiting. Zoloft was decreased to see if vomiting would lessen. She will remain on lower dose Zoloft at home. KUB and labs were unremarkable. Room air oximetry will be checked on 6 minute walk prior to discharge. I encouraged her to become a nonsmoker. She will be discharged home and follow with her PCP Dr. Melara within 1 week. She will follow with oncologists as directed. - Time Spent with Patient Total time spent providing and/or coordinating discharge services: - Discharge Medications Prescriptions: New Insulin DETEMIR [Levemir] 120 unit SQ BID 30 Days mls Sertraline [Zoloft] 50 mg PO DAILY tablet Continued Ipratropium/Albuterol Neb [Duoneb] 3 ml IH Q6HR Nitroglycerin [Nitrostat] 0.4 mg SL AD PRN PRN Reason: Chest Pain Ezetimibe [Zetia] 10 mg PO DAILY Budesonide/Formoterol 160/4.5 [Symbicort 160/4.5] 2 puff IH BIDR LORazepam [Ativan] 1 mg PO TID PRN PRN Reason: Anxiety Roflumilast [Daliresp] 500 mcg PO DAILY Magic Mouthwash [Magic Mouthwash BLM] 10 ml PO Q2H PRN #960 ml PRN Reason: Pain Albuterol Sulfate [Proair Hfa] 2 puff IH Q6H PRN PRN Reason: Shortness Of Breath Sucralfate [Carafate] 1 gm PO QIDAC PRN #120 tablet PRN Reason: Heartburn Metoclopramide [Reglan] 10 mg PO QIDAC 30 Days #1200 ml Loperamide [Imodium] 2 mg PO Q4HR PRN #30 capsule PRN Reason: Diarrhea Ondansetron [Zofran ODT] 8 mg SL Q8H PRN #30 tab PRN Reason: Nausea GuaiFENesin/Codeine [ROBITUSSIN w/CODEINE] 10 - 20 ml PO Q6HR PRN 8 Days #480 liquid PRN Reason: Cough HYDROcodone/Acet 10/325 mg [[place] 10-325 mg] 1 - 2 tab PO Q8HR PRN PRN Reason: Pain Subcutaneous Insulin Pump [T:Slim] 1 each MC AD Bupropion HCl [Wellbutrin Xl] 300 mg PO DAILY Metoprolol [Lopressor] 25 mg PO BID Spironolactone [Aldactone] 25 mg PO DAILY Vitamin B Complex/Vit C/Vit E [Stresstab] 1 each PO DAILY #30 tablet Cholecalciferol (D-3) [Vitamin D] 2,000 unit PO DAILY #30 tablet Pregabalin [Lyrica] 50 mg PO DAILY 5 Days #5 capsule Nicotine Patch [Nicoderm] 21 mg TD DAILY patch.td24 Discontinued Sertraline [Zoloft] 200 mg PO DAILY Home Medications: Budesonide/Formoterol 160/4.5 [Symbicort 160/4.5] 2 puff IH BIDR 06/23/18 [History] Ezetimibe [Zetia] 10 mg PO DAILY 06/23/18 [History] Ipratropium/Albuterol Neb [Duoneb] 3 ml IH Q6HR 06/23/18 [History] LORazepam [Ativan] 1 mg PO TID PRN 06/23/18 [History] Nitroglycerin [Nitrostat] 0.4 mg SL AD PRN 06/23/18 [History] Roflumilast [Daliresp] 500 mcg PO DAILY 06/23/18 [History] Magic Mouthwash [Magic Mouthwash BLM] 10 ml PO Q2H PRN #960 ml 10/13/18 [Rx] Albuterol Sulfate [Proair Hfa] 2 puff IH Q6H PRN 10/26/18 [History] Sucralfate [Carafate] 1 gm PO QIDAC PRN #120 tablet 11/11/18 [Rx] Metoclopramide [Reglan] 10 mg PO QIDAC 30 Days #1200 ml 11/23/18 [Rx] Loperamide [Imodium] 2 mg PO Q4HR PRN #30 capsule 12/21/18 [Rx] Ondansetron [Zofran ODT] 8 mg SL Q8H PRN #30 tab 02/04/19 [Rx] GuaiFENesin/Codeine [ROBITUSSIN w/CODEINE] 10 - 20 ml PO Q6HR PRN 8 Days #480 liquid 02/15/19 [Rx] Bupropion HCl [Wellbutrin Xl] 300 mg PO DAILY 04/12/19 [History] HYDROcodone/Acet 10/325 mg [[place] 10-325 mg] 1 - 2 tab PO Q8HR PRN 04/12/19 [History] Metoprolol [Lopressor] 25 mg PO BID 04/12/19 [History] Spironolactone [Aldactone] 25 mg PO DAILY 04/12/19 [History] Subcutaneous Insulin Pump [T:Slim] 1 each MC AD 04/12/19 [History] Cholecalciferol (D-3) [Vitamin D] 2,000 unit PO DAILY #30 tablet 04/13/19 [Rx] Vitamin B Complex/Vit C/Vit E [Stresstab] 1 each PO DAILY #30 tablet 04/13/19 [Rx] Nicotine Patch [Nicoderm] 21 mg TD DAILY patch.td24 04/23/19 [Rx] Pregabalin [Lyrica] 50 mg PO DAILY 5 Days #5 capsule 04/23/19 [Rx] Insulin DETEMIR [Levemir] 120 unit SQ BID 30 Days mls 05/18/19 [Rx] Sertraline [Zoloft] 50 mg PO DAILY tablet 05/18/19 [Rx] Allergies/Adverse Reactions: Allergy/AdvReac Type Severity Reaction Status Date / Time eszopiclone [From Lunesta] Allergy Anxiety Verified 12/21/18 09:27 gabapentin [From Neurontin] Allergy Vomiting Verified 12/21/18 09:27 meperidine [From Demerol] Allergy Itching Verified 12/21/18 09:27 metformin Allergy Diarrhea Verified 12/21/18 09:27 Date of admission: 04/23/19 12:58 Primary care physician: Reuben Melara DO Consults: 04/23/19 11:58 Consult to Occupational Therapy [CONS] Routine Comment: Eval and treat Reason for Consult: Generalized weakness Does patient have active BEDREST order?: No Is patient medically & hemodynamically stable?: Yes Consult to Physical Therapy [CONS] Routine Comment: Eval and Treat Reason for Consult: Generalized weakness Does patient have active BEDREST order?: No Is patient medically & hemodynamically stable?: Yes - Constitutional Vitals: Temp Pulse Resp BP Pulse Ox 97.9 F 69 16 143/69 99 05/18/19 06:51 05/18/19 06:51 05/18/19 09:13 05/18/19 06:51 05/18/19 09:13 - Patient Status Disposition: Home Health Service - Discharge Instructions Follow Up With: Reuben Melara DO [Primary Care Provider] - 1 week - Diet and Activity Activity: as per physical therapy Diet: diabetic diet
--- NOTE | 2019-05-18 09:58 | Physician Discharge Referral ---
Home Health/Hosp Referral Info Transfer to: Home Health Attending Provider: Yonatan Provider in Charge Post Discharge: PCP Barry) - Diagnosis (1) Weakness Priority: Primary Status: Acute (2) Hyperlipidemia Priority: Secondary Status: Chronic (3) Low vitamin D level Priority: Secondary Status: Chronic (4) Hypertension Priority: Secondary Status: Chronic (5) Anxiety and depression Priority: Secondary Status: Chronic (6) Diabetes Priority: Secondary Status: Chronic (7) Lung cancer Priority: Secondary Status: Chronic (8) Neuropathy Priority: Secondary Status: Chronic (9) COPD (chronic obstructive pulmonary disease) Priority: Secondary Status: Chronic (10) Vomiting Priority: Secondary Status: Acute - Respiratory Orders Smoking Cessation: Smoking cessation has been advised. For more information, call the [place] Tobacco Quit Line at 3-031-RTPW-NOW. - Diet/Nutrition Diet/Nutrition Orders: No Concentrated Sweets - Activity Activity Orders: Walker - Services Needed Following services are medically necessary services: Nursing, Home Health Aide, Physical Therapy, Occupational Therapy - Transfer Medications Prescriptions: Insulin DETEMIR [Levemir] 120 unit SQ BID 30 Days mls Prescription Printed Home Medications: Budesonide/Formoterol 160/4.5 [Symbicort 160/4.5] 2 puff IH BIDR 06/23/18 [History] Ezetimibe [Zetia] 10 mg PO DAILY 06/23/18 [History] Ipratropium/Albuterol Neb [Duoneb] 3 ml IH Q6HR 06/23/18 [History] LORazepam [Ativan] 1 mg PO TID PRN 06/23/18 [History] Nitroglycerin [Nitrostat] 0.4 mg SL AD PRN 06/23/18 [History] Roflumilast [Daliresp] 500 mcg PO DAILY 06/23/18 [History] Magic Mouthwash [Magic Mouthwash BLM] 10 ml PO Q2H PRN #960 ml 10/13/18 [Rx] Albuterol Sulfate [Proair Hfa] 2 puff IH Q6H PRN 10/26/18 [History] Sucralfate [Carafate] 1 gm PO QIDAC PRN #120 tablet 11/11/18 [Rx] Metoclopramide [Reglan] 10 mg PO QIDAC 30 Days #1200 ml 11/23/18 [Rx] Loperamide [Imodium] 2 mg PO Q4HR PRN #30 capsule 12/21/18 [Rx] Ondansetron [Zofran ODT] 8 mg SL Q8H PRN #30 tab 02/04/19 [Rx] GuaiFENesin/Codeine [ROBITUSSIN w/CODEINE] 10 - 20 ml PO Q6HR PRN 8 Days #480 liquid 02/15/19 [Rx] Bupropion HCl [Wellbutrin Xl] 300 mg PO DAILY 04/12/19 [History] HYDROcodone/Acet 10/325 mg [[place] 10-325 mg] 1 - 2 tab PO Q8HR PRN 04/12/19 [History] Metoprolol [Lopressor] 25 mg PO BID 04/12/19 [History] Spironolactone [Aldactone] 25 mg PO DAILY 04/12/19 [History] Subcutaneous Insulin Pump [T:Slim] 1 each MC AD 04/12/19 [History] Cholecalciferol (D-3) [Vitamin D] 2,000 unit PO DAILY #30 tablet 04/13/19 [Rx] Vitamin B Complex/Vit C/Vit E [Stresstab] 1 each PO DAILY #30 tablet 04/13/19 [Rx] Nicotine Patch [Nicoderm] 21 mg TD DAILY patch.td24 04/23/19 [Rx] Pregabalin [Lyrica] 50 mg PO DAILY 5 Days #5 capsule 04/23/19 [Rx] Insulin DETEMIR [Levemir] 120 unit SQ BID 30 Days mls 05/18/19 [Rx] Sertraline [Zoloft] 50 mg PO DAILY tablet 05/18/19 [Rx] Allergies/Adverse Reactions: Allergy/AdvReac Type Severity Reaction Status Date / Time eszopiclone [From Lunesta] Allergy Anxiety Verified 12/21/18 09:27 gabapentin [From Neurontin] Allergy Vomiting Verified 12/21/18 09:27 meperidine [From Demerol] Allergy Itching Verified 12/21/18 09:27 metformin Allergy Diarrhea Verified 12/21/18 09:27 Certification: Further, I certify that my clinical findings support that this patient is homebound (i.e. absences from home require considerable and taxing effort and are for medical reasons or worship services or infrequently or short duration when for other reasons) because: Homebound Reason: Leaving home requires considerable and taxing effort due to condition (Impaired walking ability, COPD) Attestation: My signature below is to certify that this patient is under my care and that I, or nurse practitioner, or a physician's assistant merchandise manager working with me, has a [id number] encounter with this patient.
== END 2019-05-18 11:25 | disposition home health service (06) | DRG 945 ==
LOC: INPPIK 12:58
PROVIDERS: ADMIT Internal Medicine; ATTEND Internal Medicine